=== PATIENT | female | born 1995 | race Caucasian/White ===

== ENCOUNTER → 2017-10-09 12:19 | Outpatient (CLI) | payer OTHER, SELFPAY ==
[2017-10-09 13:20] LABS: Thyroid Stim Hormone (TSH) 2.06 uIU/mL (0.358-3.74)
== END ==
PROVIDERS: Family Provider Nurse Practitioner; PCP Nurse Practitioner; Visit Provider Nurse Practitioner
DX: E03.9 Hypothyroidism, unspecified (principal)
CPT/HCPCS: 36415; 84443

== ENCOUNTER → 2018-01-22 13:33 | Outpatient (CLI) | payer OTHER, SELFPAY ==
[2018-01-24 13:28] LABS: HPV Reflexed? NOT INDICATED
== END ==
PROVIDERS: Visit Provider Obstetrics & Gynecology
DX: Z12.4 Encounter for screening for malignant neoplasm of cervix (principal)
CPT/HCPCS: 88175; G0145

== ENCOUNTER → 2018-05-16 10:04 | Outpatient (CLI) | payer OTHER, SELFPAY ==
[2018-05-16 12:25] LABS: hCG Titer Quant., Serum < 1 mIU/mL (<9 non-preg)
[2018-05-16 12:29] LABS: Follicle Stimulating Hormone 5.7 mIU/mL; Prolactin 8.2 ng/mL; T4 Free Direct 0.71 ng/dL (0.76-1.46); Thyroid Stim Hormone (TSH) 2.97 uIU/mL (0.358-3.74)
== END ==
PROVIDERS: Referring Provider Obstetrics & Gynecology; Visit Provider Obstetrics & Gynecology
DX: N91.2 Amenorrhea, unspecified (principal)
CPT/HCPCS: 36415; 83001; 83002; 84146; 84439; 84443; 84702

== ENCOUNTER → 2018-08-29 | Outpatient (CLI) | payer OTHER, SELFPAY ==
[2018-08-29 15:24] VITALS: BMI 42.7
[2018-08-29 22:22] LABS: Thyroid Stim Hormone (TSH) 2.42 uIU/mL (0.358-3.74)
== END | disposition home or self-care (01) ==
PROVIDERS: Visit Provider Nurse Practitioner
DX: E03.9 Hypothyroidism, unspecified (principal)
CPT/HCPCS: 84443

== ENCOUNTER → 2019-05-29 11:39 | Outpatient (CLI) | payer OTHER, SELFPAY ==
[2019-05-22 17:53] VITALS: BMI 42.7
[2019-05-29 12:52] LABS: ALB/GLOB Ratio 0.7 RATIO (0.9-2.4); AST(SGOT) 56 U/L (15-37); Alanine Aminotransfer ALT/SGPT 38 U/L (13-56); Albumin, Serum 3.2 g/dL (3.2-5.0); Alkaline Phosphatase 50 U/L (45-117); Anion Gap 7 (5-15); BUN 9 mg/dL (7-18); BUN/Creat Ratio 11.4 RATIO (10-20); Calcium,Total 9.7 mg/dL (8.5-10.1); Chloride 105 mmol/L (98-107); Cholesterol 155 mg/dL (200); Creatinine, Serum 0.79 mg/dL (0.55-1.02); EST Glomerular Filtration Rate 94 mL/min (>60); Est Glom Filt Rate - Afr Amer 114 mL/min (>60); Ferritin 87 ng/mL (8-252); Globulin 4.4 g/dL (2.2-4.2); Glucose 140 mg/dL (74-106); High Density Lipoprotein 47 mg/dL; Potassium 3.7 mmol/L (3.5-5.1); Protein, Total 7.6 g/dL (6.4-8.2); Sodium Level 137 mmol/L (136-145); Triglycerides 359 mg/dL; Very Low Density Lipoprotein 72 mg/dL (5-40)
[2019-05-29 14:38] LABS: Thyroid Stim Hormone (TSH) 3.95 uIU/mL (0.358-3.74)
[2019-05-30 12:01] LABS: Thyroid Peroxidase AB 8 IU/mL (0-34)
== END ==
PROVIDERS: PCP Nurse Practitioner; Referring Provider Internal Medicine Endocrinology, Diabetes & Metabolism; Visit Provider Internal Medicine Endocrinology, Diabetes & Metabolism
DX: E03.9 Hypothyroidism, unspecified (principal); E28.2 Polycystic ovarian syndrome
CPT/HCPCS: 36415; 80053; 80061; 82728; 84443; 86376

== ENCOUNTER → 2020-02-27 17:34 | Outpatient (CLI) | payer OTHER, SELFPAY ==
[2020-02-11 17:32] VITALS: BMI 42.4
== END ==
PROVIDERS: PCP Nurse Practitioner; Referring Provider Nurse Practitioner; Visit Provider Nurse Practitioner
DX: Z20.828 Contact with and (suspected) exposure to other viral communicable diseases (principal)
CPT/HCPCS: 87635; C9803; U0003

== ENCOUNTER → 2020-04-29 22:05 | Outpatient (CLI) | payer OTHER, SELFPAY ==
[2020-02-11 17:32] VITALS: BMI 42.4
[2020-04-29 22:35] LABS: Thyroid Stim Hormone (TSH) 2.04 uIU/mL (0.358-3.74)
== END ==
PROVIDERS: PCP Nurse Practitioner; Referring Provider Nurse Practitioner; Visit Provider Nurse Practitioner
DX: E03.9 Hypothyroidism, unspecified (principal)
CPT/HCPCS: 84439; 84443

== ENCOUNTER 2021-05-31 22:36 | Outpatient (CLI) | payer OTHER, SELFPAY ==
[2021-05-31 23:33] LABS: Thyroid Stim Hormone (TSH) 3.24 uIU/mL (0.358-3.74)
== END 2021-05-31 23:59 | disposition home or self-care (01) ==
PROVIDERS: PCP Nurse Practitioner; Referring Provider Nurse Practitioner; Visit Provider Nurse Practitioner
DX: E03.9 Hypothyroidism, unspecified (principal)
CPT/HCPCS: 84443

== ENCOUNTER → 2021-08-18 | Outpatient (CLI) | payer OTHER, SELFPAY ==
[2021-08-24 14:21] LABS: HPV Reflexed? NOT INDICATED
== END | disposition home or self-care (01) ==
LOC: LABSPEC 13:52
PROVIDERS: PCP Nurse Practitioner; Visit Provider Obstetrics & Gynecology
DX: Z12.4 Encounter for screening for malignant neoplasm of cervix (principal)
CPT/HCPCS: 88175; G0145

== ENCOUNTER → 2021-12-26 | Outpatient (CLI) | payer OTHER, SELFPAY ==
[2021-12-26 18:34] LABS: Estradiol 50.2 pg/mL; Follicle Stimulating Hormone 6.4 mIU/mL; Thyroid Stim Hormone (TSH) 3.55 uIU/mL (0.358-3.74)
[2022-01-08 17:07] LABS: Testosterone, Free 1.68 ng/dL (0.10-0.85); Testosterone, Total 52 ng/dL (13-71)
[2022-01-09 13:40] LABS: Testosterone, % Free 3.23 % (0.50-2.80)
== END | disposition home or self-care (01) ==
LOC: LAB 13:48
PROVIDERS: PCP Nurse Practitioner; Referring Provider Registered Nurse; Visit Provider Registered Nurse
DX: E28.2 Polycystic ovarian syndrome (principal)
CPT/HCPCS: 36415; 82670; 83001; 84402; 84403; 84443

== ENCOUNTER → 2023-09-06 | Outpatient (CLI) | payer SELFPAY | END | disposition home or self-care (01) | PROVIDERS: PCP Nurse Practitioner; Visit Provider Nurse Practitioner | DX: R30.0 Dysuria (principal) | CPT/HCPCS: 87086 ==

== ENCOUNTER → 2023-10-23 | Outpatient (CLI) | payer OTHER, SELFPAY ==
[2023-10-23 21:26] LABS: Absolute Neutrophil Count 4.4 X10^3/uL (2.0-7.7); Basophil# 0.07 X10^3/uL; Basophil% 0.8 % (0-1); Eosinophil# 0.15 X10^3/uL; Eosinophils% 1.8 % (0-5); Hematocrit 46.9 % (37-47); Hemoglobin 15.1 g/dL (12.0-15.0); Lymphocyte % 39.3 % (19-41); Mean Corp Hgb Conc 32.2 g/dL (32-36); Mean Corpuscular Hgb 28.5 pg (27.0-32.0); Mean Corpuscular Volume 88.5 fL (81-99); Mean Platelet Vol. 10.1 fl (6.2-12.0); Monocyte# 0.47 X10^3/uL; Monocyte% 5.6 % (0-10); NRBC Flagged by Analyzer 0 % (0-5); Neutrophil % 52.4 % (47-70); Platelet Count 306 K/mm3 (150-450); RBC Distribution Width CV 13.7 % (11.6-14.6); RBC Distribution Width SD 44.2 fl (35.1-43.9); White Blood Count 8.4 K/mm3 (4.4-11.0)
[2023-10-23 21:56] LABS: ALB/GLOB Ratio 0.8 RATIO (0.9-2.4); AST(SGOT) 33 U/L (15-37); Alanine Aminotransfer ALT/SGPT 59 U/L (13-56); Albumin, Serum 3.8 g/dL (3.2-5.0); Alkaline Phosphatase 61 U/L (45-117); Anion Gap 9 (5-15); BUN 14 mg/dL (7-18); BUN/Creat Ratio 19.1 RATIO (10-20); Calcium,Total 9.9 mg/dL (8.5-10.1); Chloride 104 mmol/L (98-107); Cholesterol 225 mg/dL (200); Creatinine, Serum 0.73 mg/dL (0.55-1.02); EST Glomerular Filtration Rate 99 mL/min (>60); Est Glom Filt Rate - Afr Amer 120 mL/min (>60); Globulin 4.7 g/dL (2.2-4.2); Glucose 149 mg/dL (74-106); High Density Lipoprotein 38 mg/dL; Potassium 3.9 mmol/L (3.5-5.1); Protein, Total 8.5 g/dL (6.4-8.2); Sodium Level 138 mmol/L (136-145); Thyroid Stim Hormone (TSH) 3.81 uIU/mL (0.358-3.74); Triglycerides 392 mg/dL; Very Low Density Lipoprotein 78 mg/dL (5-40)
[2023-10-26 13:08] LABS: Vitamin D 1,25-Dihydroxy 54.3 pg/mL (24.8-81.5)
== END | disposition home or self-care (01) ==
PROVIDERS: PCP Nurse Practitioner; Referring Provider Nurse Practitioner; Visit Provider Nurse Practitioner
DX: E11.9 Type 2 diabetes mellitus without complications (principal); E55.9 Vitamin D deficiency, unspecified; E03.9 Hypothyroidism, unspecified
CPT/HCPCS: 80053; 80061; 82652; 84443; 85025

== ENCOUNTER → 2023-12-17 | Outpatient (CLI) | payer OTHER, SELFPAY | END | disposition home or self-care (01) | PROVIDERS: PCP Nurse Practitioner; Referring Provider Advanced Practice Midwife; Visit Provider Advanced Practice Midwife | DX: N89.8 Other specified noninflammatory disorders of vagina (principal) | CPT/HCPCS: 87070; 87205 ==

== ENCOUNTER → 2024-01-09 | Outpatient (CLI) | payer OTHER, SELFPAY | END | disposition home or self-care (01) | PROVIDERS: PCP Nurse Practitioner; Referring Provider Advanced Practice Midwife; Visit Provider Advanced Practice Midwife | DX: R30.0 Dysuria (principal) | CPT/HCPCS: 87070; 87086; 87088; 87205 ==

== ENCOUNTER → 2024-02-27 | Outpatient (CLI) | payer OTHER, SELFPAY ==
[2024-02-27 12:25] LABS: Absolute Lymphocyte Count 3.09 X10^3/uL (0.83-4.51); Absolute Neutrophil Count 5.6 X10^3/uL (2.0-7.7); Basophil# 0.08 X10^3/uL; Basophil% 0.9 % (0-1); Eosinophil# 0.12 X10^3/uL; Eosinophils% 1.3 % (0-5); Hematocrit 41.6 % (37-47); Hemoglobin 13.8 g/dL (12.0-15.0); Lymphocyte # 3.09 X10^3/ul (0.83-4.51); Mean Corp Hgb Conc 33.2 g/dL (32-36); Mean Corpuscular Hgb 29.1 pg (27.0-32.0); Mean Corpuscular Volume 87.6 fL (81-99); Mean Platelet Vol. 9.5 fl (6.2-12.0); Monocyte# 0.45 X10^3/uL; Monocyte% 4.8 % (0-10); NRBC Flagged by Analyzer 0 % (0-5); Neutrophil # 5.55 X10^3/uL (2.7-7.7); Neutrophil % 59.1 % (47-70); Platelet Count 291 K/mm3 (150-450); Red Blood Count 4.75 M/mm3 (4.2-5.4); White Blood Count 9.4 K/mm3 (4.4-11.0)
[2024-02-27 12:39] LABS: Estradiol 30.3 pg/mL; Follicle Stimulating Hormone 7.5 mIU/mL; T4 Free Direct 0.89 ng/dL (0.76-1.46)
[2024-03-01 21:06] LABS: PROLACTIN 7.6 ng/mL (4.8-33.4); Testosterone Free 3.9 pg/mL (0.0-4.2)
[2024-03-05 03:07] LABS: 17-Hydroxyprogesterone 39 ng/dL (.)
== END | disposition home or self-care (01) ==
LOC: BWCLAB 10:13
PROVIDERS: PCP Nurse Practitioner; Referring Provider Obstetrics & Gynecology; Visit Provider Obstetrics & Gynecology
DX: E28.2 Polycystic ovarian syndrome (principal); N93.9 Abnormal uterine and vaginal bleeding, unspecified
CPT/HCPCS: 36415; 82627; 82670; 83001; 83498; 84146; 84402; 84403; 84439; 85025; 82626

== ENCOUNTER → 2024-05-01 | Outpatient (CLI) | payer SELFPAY | END | disposition home or self-care (01) | LOC: LABSPEC 14:17 | PROVIDERS: PCP Nurse Practitioner; Referring Provider Nurse Practitioner Family; Visit Provider Nurse Practitioner Family | DX: R30.0 Dysuria (principal) | CPT/HCPCS: 87086 ==

== ENCOUNTER → 2024-05-08 | Outpatient (CLI) | payer OTHER, SELFPAY ==
--- NOTE | 2024-05-08 08:42 | EKG12_ITS ---
Test Reason : PRE MEDICATION Blood Pressure : */* mmHG Vent. Rate : 89 BPM Atrial Rate : 89 BPM P-R Int : 132 ms QRS Dur : 70 ms QT Int : 348 ms P-R-T Axes : 63 37 55 degrees QTcB Int : 423 ms Normal sinus rhythm Normal ECG Confirmed by ALEX CARRERA, MONICA ([id number]), metropolitan editor KATHI LAMA ([id number]) on 05/08/2024 1:13:50 PM Referred By: Tete Davis Confirmed By: MONICA JOHNSON MD
[2024-05-08 09:57] LABS: Absolute Lymphocyte Count 2.75 X10^3/uL (0.83-4.51); Absolute Neutrophil Count 5.3 X10^3/uL (2.0-7.7); Basophil# 0.08 X10^3/uL; Basophil% 0.9 % (0-1); Eosinophil# 0.16 X10^3/uL; Eosinophils% 1.8 % (0-5); Hematocrit 42.7 % (37-47); Hemoglobin 14.1 g/dL (12.0-15.0); Lymphocyte # 2.75 X10^3/ul (0.83-4.51); Lymphocyte % 30.9 % (19-41); Mean Corpuscular Volume 87.9 fL (81-99); Mean Platelet Vol. 9.7 fl (6.2-12.0); Monocyte# 0.55 X10^3/uL; Monocyte% 6.2 % (0-10); NRBC Flagged by Analyzer 0 % (0-5); Neutrophil # 5.34 X10^3/uL (2.7-7.7); Neutrophil % 59.9 % (47-70); Platelet Count 279 K/mm3 (150-450); RBC Distribution Width CV 13.2 % (11.6-14.6); RBC Distribution Width SD 42.2 fl (35.1-43.9); Red Blood Count 4.86 M/mm3 (4.2-5.4); White Blood Count 8.9 K/mm3 (4.4-11.0)
[2024-05-08 10:55] LABS: ALB/GLOB Ratio 0.8 RATIO (0.9-2.4); AST(SGOT) 27 U/L (15-37); Alanine Aminotransfer ALT/SGPT 41 U/L (13-56); Albumin, Serum 3.7 g/dL (3.2-5.0); Alkaline Phosphatase 55 U/L (45-117); Anion Gap 7 (5-15); BUN 14 mg/dL (7-18); BUN/Creat Ratio 20.3 RATIO (10-20); Calcium,Total 9.3 mg/dL (8.5-10.1); Chloride 106 mmol/L (98-107); Cholesterol 186 mg/dL (200); Creatinine, Serum 0.69 mg/dL (0.55-1.02); EST Glomerular Filtration Rate 106 mL/min (>60); Est Glom Filt Rate - Afr Amer 129 mL/min (>60); Globulin 4.4 g/dL (2.2-4.2); Glucose 132 mg/dL (74-106); High Density Lipoprotein 47 mg/dL; Potassium 3.6 mmol/L (3.5-5.1); Protein, Total 8.1 g/dL (6.4-8.2); Sodium Level 139 mmol/L (136-145); Triglycerides 151 mg/dL; Very Low Density Lipoprotein 30 mg/dL (5-40)
[2024-05-08 12:21] LABS: Hemoglobin A1c 7.3 % (3.8-5.6)
[2024-05-10 20:07] LABS: Vitamin D 1,25-Dihydroxy 25.7 pg/mL (24.8-81.5)
== END | disposition home or self-care (01) ==
PROVIDERS: PCP Nurse Practitioner; Referring Provider Nurse Practitioner Family; Visit Provider Nurse Practitioner Family
DX: I10 Essential (primary) hypertension (principal); E11.65 Type 2 diabetes mellitus with hyperglycemia; E66.09 Other obesity due to excess calories; Z13.21 Encounter for screening for nutritional disorder; Z13.220 Encounter for screening for lipoid disorders
CPT/HCPCS: 36415; 80053; 80061; 82652; 83036; 85025; 93005

== ENCOUNTER → 2025-01-01 | Outpatient (CLI) | payer BC, SELFPAY ==
--- OUTSIDE RECORDS SUMMARY | 2025-01-01 22:24 | XMS RPT_ITS | CCD ---
Author Organization [facility] Care Team Providers Care Mortgage Accounting Clerk Name Role Phone Chinchilla OVERHEAD GARAGE DOOR HANGER, OVERHEAD GARAGE DOOR HANGER-C Lelo Primary Care Provider Chinchilla OVERHEAD GARAGE DOOR HANGER, OVERHEAD GARAGE DOOR HANGER-C Lelo Referring Provider [phone] MONIKA Carter Attending Provider Tete Davis Attending Unavailable Chinchilla OVERHEAD GARAGE DOOR HANGER, Lelo Primary Care Unavailable Chinchilla OVERHEAD GARAGE DOOR HANGER, Lelo Referring Unavailable Chinchilla OVERHEAD GARAGE DOOR HANGER, Lelo Primary Care Unavailable Chinchilla OVERHEAD GARAGE DOOR HANGER, Lelo Attending Unavailable Andres Fletcher Attending Unavailable Chinchilla OVERHEAD GARAGE DOOR HANGER, Lelo Referring Unavailable Chinchilla OVERHEAD GARAGE DOOR HANGER, Lelo Primary Care Unavailable Natasha Juarez Attending Unavailable Chinchilla OVERHEAD GARAGE DOOR HANGER, Lelo Referring Unavailable Chinchilla OVERHEAD GARAGE DOOR HANGER, Lelo Primary Care Unavailable Tete Davis Attending Unavailable Chinchilla OVERHEAD GARAGE DOOR HANGER, Lelo Referring Unavailable Chinchilla OVERHEAD GARAGE DOOR HANGER, Lelo Primary Care Unavailable Natasha Juarez Attending Unavailable Chinchilla OVERHEAD GARAGE DOOR HANGER, Lelo Referring Unavailable Chinchilla OVERHEAD GARAGE DOOR HANGER, Lelo Primary Care Unavailable Celia Chopra Attending Unavailable Chinchilla OVERHEAD GARAGE DOOR HANGER, Lelo Referring Unavailable Chinchilla OVERHEAD GARAGE DOOR HANGER, Lelo Primary Care Unavailable Natasha Juarez Attending Unavailable Chinchilla OVERHEAD GARAGE DOOR HANGER, Lelo Referring Unavailable Chinchilla OVERHEAD GARAGE DOOR HANGER, Lelo Primary Care Unavailable Chinchilla OVERHEAD GARAGE DOOR HANGER, Lelo Primary Care Unavailable Jenni Webb Attending Unavailabl Tete Simon Referring Unavailable Chinchilla OVERHEAD GARAGE DOOR HANGER, Lelo Referring Unavailable Chinchilla OVERHEAD GARAGE DOOR HANGER, Lelo Primary Care Unavailable Celia Chopra Attending Unavailable Chinchilla OVERHEAD GARAGE DOOR HANGER, Lelo Referring Unavailable Chinchilla OVERHEAD GARAGE DOOR HANGER, Lelo Primary Care Unavailable Tete Davis Attending Unavailable Chinchilla OVERHEAD GARAGE DOOR HANGER, Lelo Primary Care Unavailable Tete Davis Referring Unavailable Tete Davis Attending Unavailable Tete Davis Attending Unavailable Tete Davis Referring Unavailable Chinchilla OVERHEAD GARAGE DOOR HANGER, Lelo Primary Care Unavailable Natasha Juarez Referring Unavailable Natasha Juarez Attending Unavailable Chinchilla OVERHEAD GARAGE DOOR HANGER, Lelo Primary Care Unavailable Natasha Juarez Attending Unavailable Natasha Juarez Referring Unavailable Amor OVERHEAD GARAGE DOOR HANGER, Lelo Primary Care Unavailable Celia Chopra Attending Unavailable Celia Chopra Referring Unavailable Amor OVERHEAD GARAGE DOOR HANGER, Lelo Primary Care Unavailable Amor OVERHEAD GARAGE DOOR HANGER, Lelo Referring Unavailable Amor OVERHEAD GARAGE DOOR HANGER, Lelo Primary Care Unavailable Amor OVERHEAD GARAGE DOOR HANGER, Lelo Attending Unavailable Allergies Allergy Classification Reported Allergen(s) Allergy Type Date of Onset Reaction(s) Facility (2 sources) levoFLOXacin Drug Allergy 11-23-19 19 Other [facility] Work Phone: (1 source) Seasonal allergy Allergy to substance 11-23-19 19 [facility] Work Phone: (1 source) Seasonal Allergies: Uncoded Allergy to substance 12-27-19 NEEDS FOLLOW-UP [facility] Work Phone: (1 source) empagliflozin Drug Allergy 06-27-19 [facility] Repository (1 source) levoFLOXacin Drug Allergy 06-27-19 [facility] Repository (1 source) metFORMIN Drug Allergy 12-17-19 [facility] Repository (1 source) Nitrofurantoin Drug Allergy 06-27-19 [facility] Repository (1 source) Environmental Allergies: Uncoded; Translations: [Environmental Allergies: Uncoded] Propensity to adverse reactions (disorder) 06-27-19 [facility] Repository (1 source) thyroid, pork Drug allergy (disorder) 06-27-19 [facility] Repository Medications Current Medications Medication Drug Class(es) Dates Sig (Normalized) Sig (Original) [id number] 200 actuat albuterol 0.09 mg/actuat metered dose inhaler (6 sources) beta2-Adrenergic Agonist Start: 03-16-2021 take 1 puff(s) by inhalation every four hours Albuterol Sulfate (Proair Hfa) 90 mcg/actuation HFA aerosol inhaler Active 2 PUFF INHALATION Q4H .March 16, 2021 5:33pm Start: 02-11-2020 End: 03-16-2021 take 1 puff(s) by inhalation every four hours Albuterol Sulfate (Proair Hfa) 90 mcg/actuation HFA aerosol inhaler Active 2 PUFF INHALATION Q4H .5 March 16, 2021 5:33pm Start: 10-25-2015 End: 05-14-2018 take 1 puff(s) by inhalation every four hours as needed Albuterol Sulfate Discontinued 1 - 2 PUFF INHALATION EVERY 4 HOURS NEEDED October 25, 2015 12:31pm May 14, 2018 5:12pm cefdinir 300 mg oral capsule (6 sources) Cephalosporin Antibacterial Start: 05-31-2021 End: 12-26-2021 take 600 mg by mouth once daily Cefdinir Active 600 MG PO DAILY May 31, 2021 9:09pm Start: 05-23-2019 End: 04-29-2020 take 300 mg by mouth twice daily Cefdinir Discontinued 300 MG PO TWICE A DAY February 11, 2020 6:35pm April 29, 2020 6:30pm famotidine 20 mg oral tablet (2 sources) Histamine-2 Receptor Antagonist Start: 05-22-2019 End: 12-26-2021 take 1 tablet by mouth once daily Famotidine (Pepcid) 20 mg tablet Active 20 MG PO DAILY May 22, 2019 6:56pm ibuprofen 800 mg oral tablet (6 sources) Nonsteroidal Anti-inflammatory Drug Start: 05-22-2019 End: 02-11-2020 take 800 mg by mouth every eight hours Ibuprofen Active 800 MG PO Q8H 60 February 11, 2020 6:36pm Start: 03-14-2019 End: 05-22-2019 take 1 tablet by mouth every six hours Ibuprofen (Ibu) 400 mg tablet Discontinued 400 MG PO EVERY 6 HOURS March 14, 2019 2:21pm May 22, 2019 6:57pm levocetirizine dihydrochloride 5 mg oral tablet (2 sources) Histamine-1 Receptor Antagonist Start: 02-11-2020 take 1 tablet by mouth once daily Levocetirizine (Xyzal) 5 mg tablet Active 5 MG PO DAILY February 11, 2020 6:33pm magnesium hydroxide 400 mg chewable tablet (2 sources) Start: 04-04-2019 Magnesium Hydroxide Active MG PO April 04, 2019 10:58am multivitamin,tx-iron- minerals tablet (2 sources) Start: 01-02-2018 take 1 tablet by mouth once daily multivitamin,tx-iro n-minerals tablet Active 1 TABLET PO DAILY January 02, 2018 3:52pm Start: 01-02-2018 take 1 tablet by argenis th once daily multivitamin,nh-mdbm-vaywshnb tablet Act sheila 1 TABLET PO DAILY January 02, 2018 12:00am Completed/Discontinued Medications Medication Drug Class(es) Dates Sig (Normalized) Sig (Original) acetaminophen 300 mg / butalbital 50 mg / caffeine 40 mg oral capsule (2 sources) Barbiturate, Central Nervous System Stimulant, Methylxanthine Start: 01-02-2018 End: 02-11-2020 take 1 capsule by mouth every six hours Butalbital-Acetam inophen-Caff (Fioricet) 50-300-40 mg capsule Discontinued 1 CAP PO EVERY 6 HOURS January 02, 2018 3:50pm February 11, 2020 6:33pm amoxicillin 875 mg / clavulanate 125 mg oral tablet (16 sources) Penicillin-class Antibacterial Start: 01-19-2021 End: 05-31-2021 take 1 tablet by mouth twice daily Amoxicillin-Pot Clavulanate Discontinued 1 TABLET PO TWICE A DAY March 16, 2021 5:33pm May 31, 2021 9:06pm Start: 07-07-2020 End: 07-21-2020 take 1 tablet by mouth twice daily Amoxicillin-Pot Clavulanate Discontinued 1 TABLET PO TWICE A DAY July 07, 2020 6:10pm July 21, 2020 12:03am Start: 06-13-2019 End: 06-27-2019 take 1 tablet by mouth twice daily Amoxicillin-Pot Clavulanate Discontinued 1 TABLET PO TWICE A DAY June 13, 2019 10:51pm June 27, 2019 12:08am Start: 01-02-2018 End: 05-23-2019 take 1 tablet by mouth twice daily Amoxicillin-Pot Clavulanate Discontinued 1 TABLET PO TWICE A DAY May 22, 2019 6:56pm May 23, 2019 6:35pm calcium carbonate 500 mg chewable tablet (2 sources) Start: 10-25-2015 End: 05-14-2018 take 1000 mg by mouth every four hours as needed Calcium Carbonate Discontinued 1000 MG PO EVERY 4 HOURS NEEDED October 25, 2015 12:31pm May 14, 2018 5:12pm cetirizine hydrochloride 10 mg oral capsule (2 sources) Histamine-1 Receptor Antagonist Start: 03-14-2019 End: 02-11-2020 take 1 capsule by mouth once daily Cetirizine (Zyrtec) 10 mg capsule Discontinued 10 MG PO DAILY March 14, 2019 2:20pm February 11, 2020 6:34pm docusate sodium 100 mg oral capsule (2 sources) Start: 10-28-2015 End: 05-14-2018 Docusate Sodium Discontinued 100 MG PO TWICE A DAY 60 October 28, 2015 8:00am May 14, 2018 5:12pm take one tab twice daily for first two weeks to keep BM soft. After two weeks, may use prn. empagliflozin 25 mg oral tablet (2 sources) Sodium-Glucose Cotransporter 2 Inhibitor Start: 04-29-2020 End: 05-31-2021 take 1 tablet by mouth once daily Empagliflozin (Jardiance) 25 mg tablet Discontinued 25 MG PO DAILY April 29, 2020 6:40pm May 31, 2021 9:06pm 168 hr ethinyl estradiol 0.11995 mg/hr / norelgestromin 0.36542 mg/hr transdermal system (2 sources) Progestin, Estrogen Start: 08-29-2018 End: 05-31-2021 Norelgestromin-Eth in.Estradiol (Xulane) 150-35 mcg/24 hr patch weekly Discontinued 1 PATCH TD EVERY WEEK August 29, 2018 3:27pm May 31, 2021 9:07pm Norgestimate-Ethinyl Estradiol (4 sources) Progestin, Estrogen Start: 05-14-2018 End: 05-14-2018 take 1 tablet by mouth once daily Norgestimate-Ethin yl Estradiol (Tri-Sprintec (28)) 0.18/0.215/0.25 mg-35 mcg (28) tablet Discontinued 1 TABLET PO DAILY May 14, 2018 5:14pm May 14, 2018 6:36pm Start: 05-14-2018 End: 05-14-2018 take 1 tablet by mouth once daily Norgestimate-Ethinyl Estradiol (Tri-Sprintec (28)) 0.18/0.215/0.25 mg-35 mcg (28) tablet Discontinued 1 TABLET PO DAILY May 14, 2018 1:00am May 14, 2018 6:36pm Start: 01-02-2018 End: 01-02-2018 take 1 tablet by mouth once daily Norgestimate-Ethinyl Estradiol (Zjr-Me-Ohmhuxuw) 0.18/0.215/0.25 mg-25 mcg tablet Discontinued 1 TABLET PO DAILY January 02, 2018 3:48pm January 02, 2018 5:56pm Start: 01-02-2018 End: 01-02-2018 take 1 tablet by mouth once daily Norgestimate-Ethinyl Estradiol (Kwc-Qs-Rtrujfvw) 0.18/0.215/0.25 mg-25 mcg tablet Discontinued 1 TABLET PO DAILY January 02, 2018 12:00am January 02, 2018 5:56pm fluconazole 150 mg oral tablet (6 sources) Azole Antifungal Start: 01-02-2018 End: 04-29-2020 Fluconazole Discontinued 150 MG PO Q3D 2 0 February 11, 2020 1:00am April 29, 2020 6:32pm may repeat second dose 72 hrs after first dose if symptoms persist levothyroxine sodium 0.137 mg oral tablet (6 sources) l-Thyroxine Start: 06-13-2019 End: 12-26-2021 take 137 ug by mouth once daily Levothyroxine Discontinued 137 MCG PO DAILY March 11, 2020 10:15am April 30, 2020 12:09pm loratadine 10 mg oral tablet (2 sources) Start: 10-25-2015 End: 05-14-2018 take 10 mg by mouth once daily Loratadine Discontinued 10 MG PO DAILY October 25, 2015 12:31pm May 14, 2018 5:11pm oxyCODONE hydrochloride 5 mg oral tablet (2 sources) Opioid Agonist Start: 10-28-2015 End: 05-14-2018 take 5-10 mg by mouth every four hours as needed Oxycodone Discontinued 5 - 10 MG PO EVERY 4 HOURS NEEDED October 28, 2015 8:01am May 14, 2018 5:10pm Pnv Cmb#95-Ferrous Fumarate-Fa (2 sources) Start: 06-22-2015 End: 05-14-2018 Pnv Cmb#95-Ferrous Fumarate-Fa Discontinued 1 EACH PO DAILY June 22, 2015 1:50pm May 14, 2018 5:10pm Start: 06-22-2015 End: 05-14-2018 Pnv Cmb#95-Ferrous Fumarate- Fa Discontinued 1 EACH PO DAILY June 22, 2015 12:00am May 14, 2018 5:10pm predniSONE 20 mg oral tablet (2 sources) Start: 02-26-2020 End: 03-04-2020 take 40 mg by mouth once daily Prednisone Discontinued 40 MG PO DAILY 14 February 26, 2020 8:40pm March 04, 2020 1:03am raNITIdine 150 mg oral capsule (2 sources) Histamine-2 Receptor Antagonist Start: 03-14-2019 End: 05-22-2019 take 150 mg by mouth once daily Ranitidine Hcl Discontinued 150 MG PO DAILY March 14, 2019 2:21pm May 22, 2019 6:56pm sulfamethoxazole 800 mg / trimethoprim 160 mg oral tablet (2 sources) Dihydrofolate Reductase Inhibitor Antibacterial, Sulfonamide Antimicrobial Start: 05-27-2018 End: 06-06-2018 take 1 tablet by mouth twice daily Sulfamethoxazole- Trimethoprim Discontinued 1 TABLET PO TWICE A DAY 20 May 27, 2018 10:07pm June 06, 2018 1:07am thyroid (long term) 15 mg oral tablet (8 sources) Start: 01-02-2018 End: 06-13-2019 take 1 tablet by mouth once daily Thyroid (Pork) ([place] Thyroid) 15 mg tablet Discontinued 15 MG PO DAILY November 04, 2018 11:33am June 13, 2019 6:05pm vitamin b12 1 mg/ml injectable solution (6 sources) Vitamin B12 Start: 01-02-2018 End: 02-11-2020 inject 1000 ug by intramuscular injection every week Cyanocobalamin (Vitamin B-12) Discontinued 1000 MCG IM EVERY WEEK 4.286 August 29, 2018 12:00am September 23, 2019 12:02am Problems Active Problems Problem Classification Problem Date Documented Da te Episodic/Chronic Chronic obstructive pulmonary disease and bronchiectasis (2 sources) Bronchitis; Translations: [Bronchitis, not specified as acute or chronic] Episodic Contraceptive and procreative management (3 sources) Patient encounter status; Translations: [Encounter for other general counseling and advice on procreation] Onset: 05-01-2024 Episodic Diabetes mellitus with complications (1 source) Type 2 diabetes mellitus with hyperglycemia; Translations: [Type 2 diabetes mellitus with hyperglycemia] Onset: 05-01-2024 Chronic Diabetes mellitus without complication (1 source) Type 2 diabetes mellitus without complications; Translations: [Type 2 diabetes mellitus without complications] Onset: 01-03-2024 Chronic Essential hypertension (1 source) Essential (primary) hypertension; Translations: [Essential (primary) hypertension] Onset: 05-27-2024 Chronic Genitourinary symptoms and ill-defined conditions (4 sources) Increased frequency of urination; Translations: [Frequency of micturition] Onset: 01-09-2024 Episodic Immunizations and screening for infectious disease (2 sources) Contact with or exposure to other viral diseases; Translations: [Exposure to COVID-19 virus] Episodic Mycoses (2 sources) Anogenital candidiasis; Translations: [Candidiasis of vulva and vagina] Episodic Nutritional deficiencies (2 sources) Cobalamin deficiency; Translations: [Deficiency of other specified B group vitamins] Episodic Other connective tissue disease (2 sources) Pain in toe; Translations: [Pain in left toe(s)] Episodic Other endocrine disorders (1 source) Polycystic ovary syndrome; Translations: [Polycystic ovarian syndrome] Chronic Other endocrine disorders (2 sources) Polycystic ovarian syndrome; Translations: [Polycystic ovaries] Onset: 05-01-2024 Chronic Other nutritional; endocrine; and metabolic disorders (2 sources) Insulin resistance; Translations: [Metabolic syndrome] Chronic Other nutritional; endocrine; and metabolic disorders (2 sources) Metabolic syndrome; Translations: [Dysmetabolic syndrome X] Onset: 05-01-2024 Chronic Other nutritional; endocrine; and metabolic disorders (1 source) Other obesity due to excess calories; Translations: [Other obesity due to excess calories] Onset: 05-01-2024 Chronic Other screening for suspected conditions (not mental disorders or infectious disease) (2 sources) Encounter for screening for lipoid disorders; Translations: [Encounter for screening for nutritional disorder] Onset: 05-01-2024 Episodic Other upper respiratory infections (2 sources) Maxillary sinusitis; Translations: [Chronic maxillary sinusitis] Chronic Other upper respiratory infections (2 sources) Posterior rhinorrhea; Translations: [Postnasal drip] Episodic Otitis media and related conditions (2 sources) Otitis media; Translations: [Otitis media, unspecified, left ear] Episodic Superficial injury; contusion (2 sources) Blister of foot; Translations: [Blister (nonthermal), left lesser toe(s), initial encounter] Episodic Thyroid disorders (4 sources) Acquired hypothyroidism; Translations: [Hypothyroidism, unspecified] Onset: 05-01-2024 Chronic Urinary tract infections (2 sources) Cystitis; Translations: [Cystitis, unspecified without hematuria] Episodic Past or Other Problems Problem Classification Problem Date Documented Date Episodic/Chronic Other female genital disorders (1 source) Other specified noninflammatory disorders of vagina; Translations: [Other specified noninflammatory disorders of vagina] Onset: 01-07-2024 Episodic Unclassified (2 sources) ALLERGIC REACTION TO PERTUSSIS Unclassified (1 source) MONO 10 YEARS Unclassified (1 source) mono at 10 yrs Results Test Name Value Interpretation Reference Range Facility Kitchen Hand Office Visit Reporton 06-26-2024 Kitchen Hand Office Visit Report [facility] [address], [address] [place] [address] OFFICE VISIT Date of Service: 06/26/24 MR#: [id number] Acct: [id number] Name: RAYNA WESTON Rep #: [id number] : 1995 Provider: HANY Jay Age/Sex: 29/F Location: [facility] [place] Status: Signed Intake Vital Signs 05/23/24 11:07 06/26/24 11:30 06/26/24 11:31 Height 5 ft 6 in 5 ft 6 in 5 ft 6 in Weight: 245 lb 236 lb BMI 39.5 38.0 BP 157/100 H 144/87 H 129/86 H Pulse 83 82 Intake Visit Reasons: 1 M CK Refrigeration Systems Installer Required: No Is patient in pain?: No Allergies Environmental Allergies: Uncoded Allergy (Intermediate, Verified 06/26/24 11:26) NEEDS FOLLOW-UP empagliflozin (From Jardiance) Adverse Reaction (Severe, Verified 06/26/24 11:26) uti and yeast infections thyroid, pork (From [place] Thyroid) Adverse Reaction (Severe, Verified 06/26/24 11:26) tachycardia and SOB nitrofurantoin (From Macrobid) Adverse Reaction (Intermediate, Verified 06/26/24 11:26) Chest tightness levofloxacin (From Levaquin) Adverse Reaction (Verified 06/26/24 11:26) Other Medications ???Medication ???Instructions ???Recorded ???Confirmed ???Type multivitamin,yy-isqk-lykqbiz s 1 tab PO DAILY 01/02/18 06/26/24 H istory (Complete Multivitamin tablet) magnesium hydroxide 400 mg (170 mg mg PO 04/04/19 06/26/24 History magnesium) chewable tablet melatonin 5 mg tablet 5 mg PO HS PRN 02/06/22 06/26/24 H istory syringe with needle 3 mL 25 x 5/8" #50 ea 07/25/22 06/26/24 Rx (BD Eclipse Luer-Gauri) albuterol sulfate 90 mcg/actuation 2 puff inhalation Q4H PRN 06/26/24 Rx aerosol inhaler (ProAir HFA) shortness of breath or wheezing #8.5 grams albuterol sulfate 1.25 mg/3 mL 1.25 mg (3 mL) inhalation Q4H #75 10/22/23 06/26/24 Rx solution for nebulization mL ibuprofen 800 mg tablet 800 mg PO Q8H PRN pain #60 tabs 06/26/24 Rx ascorbate calcium (vitamin C) 500 500 mg PO BID 10/28/23 06/26/24 H istory mg tablet bovine colustrum PO 10/28/23 06/26/24 History cetirizine 10 mg capsule (Zyrtec) 10 mg PO QDAY PRN 01/03/24 History tirzepatide 5 mg/0.5 mL 10 mg subcut QWEEK 06/26/24 History subcutaneous pen injector (Micahunkrissyro) Last Menstrual Period: 02/11/24 PFSH PFSH Medical History Vaginal itching Encounter for well woman exam with routine gynecological exam Vaginal odor Hyperglycemia due to type 2 diabetes mellitus History of live Tonsillectomy planned Hypothyroidism H/O headache H/O urinary tract infection Asthma MONO 10 YEARS ALLERGIC REACTION TO PERTUSSIS mono at 10 yrs allergic reaction to pertussis Surgical History History of cholecystectomy History of cholecystectomy Family History Mother Hypertension High cholesterol Brother Asthma Severe allergy Father Thyroid disorder Other Anxiety Breast cancer Diabetes History of PCOS Hormone deficiency PCOS (polycystic ovarian syndrome) Social History adopted: No household members: spouse number of children: 1 current occupational status: employed current occupation: [employer] Smoking Status: Never smoker second hand exposure: No alcohol intake: current Alcohol type: wine substance use type: does not use what type of physical activity do you participate in: yoga frequency: 1-2 times per week seatbelt use: always do you feel safe at home: Yes 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 Date Name GA/Weeks Outcome Route Bth Weight Gen Labor Lgth Anesthesia Del Locatn Provider FOB 10/26/15 Thanh HPI 1 M CK Details: RAYNA WESTON is a 29 year old Female presenting for a weight management follow up; she is doing well and feeling well today. She is still taking monjaro through her PCP. Has become more in tune with the foods that she is eating and made changes to her nutrition and behaviors. Has increased her steps--will continue to work on exercise. Female Reproductive History Last Menstrual Period: 02/11/24 ROS Const Reports as per HPI, Denies difficulty sleeping, Denies excessive sweating, Denies fatigue (new onset severe) and Denies fever(s) Eyes Denies change in vision and Denies diplopia ENT Denies dizziness Card Denies chest pain, Denies dyspnea, Denies dyspnea on exertion, Denies palpitations and Denies r (more content not included)... Normal [facility] Kitchen Hand Office Visit Reporton 05-23-2024 Kitchen Hand Office Visit Report [facility] [address], [address] [place] [address] OFFICE VISIT Date of Service: 05/23/24 MR#: [id number] Acct: [id number] Name: RAYNA WESTON Rep #: [id number] : 1995 Provider: Dr. Celia tapia MD Age/Sex: 28/F Location: [facility] [place] Status: Signed Intake Vital Signs 05/01/24 09:52 05/23/24 11:04 05/23/24 11:07 05/23/24 11:11 05/23/24 11:48 Height 5 ft 6 in 5 ft 6 in 5 ft 6 in Weight: 245 lb BMI 39.5 BP 157/100 H 160/92 H 140/87 H Pulse 83 Intake Visit Reasons: WEIGHT MANAGEMENT Refrigeration Systems Installer Required: No Is patient in pain?: No Allergies Environmental Allergies: Uncoded Allergy (Intermediate, Verified 05/23/24 11:05) NEEDS FOLLOW-UP empagliflozin (From Jardiance) Adverse Reaction (Severe, Verified 05/23/24 11:05) uti and yeast infections thyroid, pork (From [place] Thyroid) Adverse Reaction (Severe, Verified 05/23/24 11:05) tachycardia and SOB nitrofurantoin (From Macrobid) Adverse Reaction (Intermediate, Verified 05/23/24 11:05) Chest tightness levofloxacin (From Levaquin) Adverse Reaction (Verified 05/23/24 11:05) Other Medications ???Medication ???Instructions ???Recorded ???Confirmed ???Type multivitamin,eu-cmey-uhhdrjz s 1 tab PO DAILY 01/02/18 05/23/24 H istory (Complete Multivitamin tablet) magnesium hydroxide 400 mg (170 mg mg PO 04/04/19 05/23/24 History magnesium) chewable tablet melatonin 5 mg tablet 5 mg PO HS PRN 02/06/22 05/23/24 H istory syringe with needle 3 mL 25 x 5/8" #50 ea 07/25/22 05/23/24 Rx (BD Eclipse Luer-Gauri) albuterol sulfate 90 mcg/actuation 2 puff inhalation Q4H PRN 05/23/24 Rx aerosol inhaler (ProAir HFA) shortness of breath or wheezing #8.5 grams albuterol sulfate 1.25 mg/3 mL 1.25 mg (3 mL) inhalation Q4H #75 10/22/23 05/23/24 Rx solution for nebulization mL ibuprofen 800 mg tablet 800 mg PO Q8H PRN pain #60 tabs 05/23/24 Rx ascorbate calcium (vitamin C) 500 500 mg PO BID 10/28/23 05/23/24 H istory mg tablet bovine colustrum PO 10/28/23 05/23/24 History cetirizine 10 mg capsule (Zyrtec) 10 mg PO QDAY PRN 01/03/24 History tirzepatide 5 mg/0.5 mL 5 mg subcut QWEEK 05/01/24 5 History subcutaneous pen injector (Eduardo) Last Menstrual Period: 02/11/24 Zika: Zika virus screening: Negative : No Have you fallen in the past year?: No PFSH PFSH Medical History Vaginal itching Encounter for well woman exam with routine gynecological exam Vaginal odor Hyperglycemia due to type 2 diabetes mellitus History of live Tonsillectomy planned Hypothyroidism H/O headache H/O urinary tract infection Asthma MONO 10 YEARS ALLERGIC REACTION TO PERTUSSIS mono at 10 yrs allergic reaction to pertussis Surgical History History of cholecystectomy History of cholecystectomy Family History Mother Hypertension High cholesterol Brother Asthma Severe allergy Father Thyroid disorder Other Anxiety Breast cancer Diabetes History of PCOS Hormone deficiency PCOS (polycystic ovarian syndrome) Social History adopted: No household members: spouse number of children: 1 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 Date Name GA/Weeks Outcome Route Bth Weight Infant Gen Labor Lgth Anesthesia Del [facility] Provider FOB 10/26/15 Thanh HARVEYVD HPI WEIGHT MANAGEMENT Details: RAYNA WESTON is a 28 year old Female presenting for a weight management follow-up. She is making changes to her diet and following a balanced calorie nutritional plan and has started on compounded tirzepatide as prescribed by her primary care doctor. She is already lost 8 pounds and is doing well on this medication with minimal side effects. She is very motivated to lose weight as she is wanting to conceive. She is using condoms right now for control. She is wanting to come here for additional nutritional support as needed and will make appointments every 3 months o (more content not included)... Normal [facility] Vitamin D 1,25-Dihydroxyon 0 05-10-2024 VIT D 1,25 DIHY 25.7 pg/mL Normal 24.8-81.5 [facility] Comment on above: Result Comment: Perf ormed at: [facility] [id number] Research [employer] Insights Executive: Annie Lambert MD, Phone: [phone] Performed By: #### M 100.2000, M100.2200, M100.3200 #### [facility] [address] [place], [address] 12 Lead EKGon 05-08-2024 12 Lead EKG [facility] [address] [place] [address] 12 Lead EKG 05/08/24 0847 MR#: [id number] Acct: [id number] Name: RAYNA WESTON Rep #: [id number] : 1995 28 From: Jenni Webb MD Attending Dr: HNAY Maciel Status: REG CLI Ordering Dr: Tete Davis Date: 05/08/24 Location: [facility] Sex: F C Admitted: Test Reason : PRE MEDICATION Blood Pressure : */* mmHG Vent. Rate : 89 BPM Atrial Rate : 89 BPM P-R Int : 132 ms QRS Dur : 70 ms QT Int : 348 ms P-R-T Axes : 63 37 55 degrees QTcB Int : 423 ms Normal sinus rhythm Normal ECG Confirmed by ALEX CARRERA, MOINCA ([id number]), manager editorial KATHI LAMA ([id number]) on 05/08/2024 1:13:50 PM Referred By: Tete Davis Confirmed By: MONICA WEBB MD 05/08/24 1313 Date Jenni Webb MD CC: OVERHEAD GARAGE DOOR HANGER-Dominic Davis; OVERHEAD GARAGE DOOR HANGER-C Lelo Chinchilla Signed Normal [facility] CBC W/Diff, Automatedon 01-3 0-2024 Absolute Lymph 2.75 X10 3/uL Normal 0.83-4.51 [facility] Comment on above: Performed By: #### M , .2199, M100.3200 #### [facility] [address] [place], [address] Absolute Neut 5.3 X10 3/uL Normal 2.0-7.7 [facility] Comment on above: Performed By: #### M , , M100.3200 #### [facility] [address] [place], [address] Basophils/100 WBC (Bld) 0.9 % Normal 0-1 [facility] Comment on above: Performed By: #### M , , M1.3200 #### [facility] [address] [place], [address] Eosinophils/100 WBC (Bld) 1.8 % Normal 0-5 [facility] Comment on above: Performed By: #### M , .2199, M100.3200 #### [facility] [address] [place], [address] Erythrocyte distribution width (RBC) [Ratio] 13.2 % Normal 11.6-14.6 [facility] Comment on above: Performed By: #### M , .0, M100.3200 #### [facility] [address] [place], [address] Hematocrit (Bld) [Volume fraction] 42.7 % Normal 37-47 [facility] Comment on above: Performed By: #### M , .2199, M100.3200 #### [facility] [address] [place], [address] Hemoglobin (Bld) [Mass/Vol] 14.1 g/dL Normal 12.0-15.0 [facility] Comment on above: Performed By: #### M , , 0 #### [facility] [address] [place], [address] IG% 0.300 Normal 0.0-0.9 [facility] Comment on above: Result Comment: IG% - Immature Granulocytes (promyelocytes, myelocytes and metamyelocytes) > 1% indicates that a LEFT SHIFT is Present. Performed By: #### M , , #### [facility] [address] [place], [address] Lymphocytes/100 WBC (Bld) 30.9 % Normal 19-41 [facility] Comment on above: Performed By: #### M , , #### [facility] [address] [place], [address] MCH (RBC) [Entitic mass] 29.0 pg Normal 27.0-32.0 [facility] Comment on above: Performed By: #### M , , .0 #### [facility] [address] [place], [address] MCHC (RBC) [Mass/Vol] 33.0 g/dL Normal 32-36 [facility] Comment on above: Performed By: #### M , , .0 #### [facility] [address] [place], [address] MCV (RBC) [Entitic vol] 87.9 fL Normal 81-99 [facility] Comment on above: Performed By: #### M , , #### [facility] [address] [place], [address] Monocytes/100 WBC (Bld) 6.2 % Normal 0-10 [facility] Comment on above: Performed By: #### M , .2199, M100.3200 #### [facility] [address] [place], [address] Neutrophils/100 WBC (Bld) 59.9 % Normal 47-70 [facility] Comment on above: Performed By: #### M , .2199, M100.3200 #### [facility] [address] [place], [address] Nucleated RBC (Bld) [#/Vol] 0 10*3/uL Normal 0-5 [facility] Comment on above: Performed By: #### M , , M1.3200 #### [facility] [address] [place], [address] Platelet mean volume (Bld) [Entitic vol] 9.7 fL Normal 6.2-12.0 [facility] Comment on above: Performed By: #### M , , M1.3200 #### [facility] [address] [place], [address] Platelets (Bld) [#/Vol] 279 10*3/uL Normal 150-450 [facility] Comment on above: Performed By: #### M , , M100.3200 #### [facility] [address] [place], [address] RBC (Bld) [#/Vol] 4.86 10*6/uL Normal 4.2-5.4 [facility] Comment on above: Performed By: #### M , , M100.3200 #### [facility] [address] [place], [address] RDW SD 42.2 fl Normal 35.1-43.9 [facility] Comment on above: Performed By: #### M , M100.2200, M100.3200 #### [facility] [address] [place], [address] WBC (Bld) [#/Vol] 8.9 10*3/uL Normal 4.4-11.[address] [facility] Comment on above: Performed By: #### M , .0, M100.3200 #### [facility] [address] [place], [address] Comprehensive Metabolic Prof [facility] 05-08-2024 Albumin [Mass/Vol] 3.7 g/dL Normal 3.2-5.[address] [facility] Comment on above: Performed By: #### M , .2199, M100.3200 #### [facility] [address] [place], [address] Albumin/Globulin [Mass ratio] 0.8 {ratio} Low 0.9-2.4 [facility] Comment on above: Performed By: #### M , .2200, M100.3200 #### [facility] [address] [place], [address] ALK P 55 U/L Normal 45-117 [facility] Comment on above: Performed By: #### M 100, M100.2200, M100.3200 #### [facility] [address] [place], [address] ALT [Catalytic activity/Vol] 41 U/L Normal 13-56 [facility] Comment on above: Performed By: #### M , .2200, M100.3200 #### [facility] [address] [place], [address] AST [Catalytic activity/Vol] 27 U/L Normal 15-37 [facility] Comment on above: Performed By: #### M , , #### [facility] [address] [place], [address] Bilirubin [Mass/Vol] 0.70 mg/dL Normal 0.20-1.00 [facility] Comment on above: Result Comment: For patients on eltrombopag therapy, use of Dimension [place] TBIL is not recommended. Performed By: #### M , , #### [facility] [address] [place], [address] BUN/CRE 20.3 RATIO High 10-20 [facility] Comment on above: Performed By: #### , , #### [facility] [address] [place], [address] CA,Total 9.3 mg/dL Normal 8.5-10.1 [facility] Comment on above: Performed By: #### M , , #### [facility] [address] [place], [address] Chloride [Moles/Vol] 106 mmol/L Normal 98-107 [facility] Comment on above: Performed By: #### M , , #### [facility] [address] [place], [address] CO2 [Moles/Vol] 26.0 mmol/L Normal 21.0-32.0 [facility] Comment on above: Performed By: #### M , , #### [facility] [address] [place], [address] Creatinine [Mass/Vol] 0.69 mg/dL Normal 0.55-1.02 [facility] Comment on above: Result Comment: The validity of the calculated GFR GFRAA in patients over 70 years has not been determined. Clinical correlation is essential. Performed By: #### M , .2199, M100.3200 #### [facility] [address] [place], [address] EST GFR - AA 129 mL/min Normal >60 [facility] Comment on above: Result Comment: Afri can Iranian GFR Calc Performed By: #### M , , .0 #### [facility] [address] [place], [address] GAP 7 Normal 5-15 [facility] Comment on above: Performed By: #### M , , .0 #### [facility] [address] [place], [address] GFR/1.73 sq M.predicted among non-blacks MDRD (S/P/Bld) [Vol rate/Area] 106 mL/min/{1.73_m2} Normal >60 [facility] Comment on above: Result Comment: Non- GFR Calc Performed By: #### M , , M1.0 #### [facility] [address] [place], [address] Globulin (S) [Mass/Vol] 4.4 g/dL High 2.2-4.2 [facility] Comment on above: Performed By: #### M , , M1.3200 #### [facility] [address] [place], [address] Glucose [Mass/Vol] 132 mg/dL High 74-[address] [facility] Comment on above: Result Comment: Fast ing Glucose result greater than or equal to 126 mg/dL suggests DIABETES MELLITUS per A.D.A. criteria. Performed By: #### M , , .0 #### [facility] [address] [place], [address] Potassium [Moles/Vol] 3.6 mmol/L Normal 3.5-5.1 [facility] Comment on above: Performed By: #### M , , #### [facility] [address] [place], [address] Sodium [Moles/Vol] 139 mmol/L Normal 136-[address] [facility] Comment on above: Performed By: #### M , , .0 #### [facility] [address] [place], [address] T PROT 8.1 g/dL Normal 6.4-8.2 [facility] Comment on above: Performed By: #### M , , .0 #### [facility] [address] [place], [address] Urea nitrogen [Mass/Vol] 14 mg/dL Normal 7-18 [facility] Comment on above: Performed By: #### M , , .0 #### [facility] [address] [place], [address] Hemoglobin A1con 05-08-2024 HbA1c (Bld) [Mass fraction] 7.3 % High 3.8-5.6 [facility] Comment on above: Result Comment: Norm al < 5.7 % Prediabetic 5.7 - 6.4 % Diabetic >or= 6.5 % Please note range changes. Performed By: #### M , , .0 #### [facility] [address] [place], [address] Lipid Profileon 05-08-2024 Cholesterol [Mass/Vol] 186 mg/dL Normal 200 [facility] Comment on above: Result Comment: <200 mg/dL Desirable 200-240 mg/dL Borderline >240 mg/dL High Risk Performed By: #### M , M1.2199, M100.3200 #### [facility] [address] [place], [address] Cholesterol in HDL [Mass/Vol] 47 mg/dL Normal [facility] Comment on above: Result Comment: The drugs N-Acetylcysteine and Metamizole may falsely depress this assay. Reference Range HDL <40 mg/dL Low HDL Cholesterol HDL >or= 60 mg/dL High HDL Cholesterol Performed By: #### M , , M100.3200 #### [facility] [address] [place], [address] Cholesterol in LDL [Mass/Vol] 109 mg/dL Normal 0-130 [facility] Comment on above: Performed By: #### M , , M100.3200 #### [facility] [address] [place], [address] Cholesterol in VLDL [Mass/Vol] 30 mg/dL Normal 5-40 [facility] Comment on above: Performed By: #### M , , M100.3200 #### [facility] [address] [place], [address] Triglyceride [Mass/Vol] 151 mg/dL Normal [facility] Comment on above: Result Comment: The drugs N-Acetylcysteine and Metamizole may falsely depress this assay. Serum Triglycerides Reference Interval Normal <150 mg/dL Borderline high 150 - 199 mg/dL High 200 - 499 mg/dL Very High > or = 500 mg/dL Performed By: #### M , M1, M100.3200 #### [facility] [address] [place], [address] Urine Cultureon 05-02-2024 URC Culture exhibits no growth. Normal [facility] Comment on above: Performed By: #### M 100.2200 #### [facility] [address] [place], [address] Kitchen Hand Office Visit Reporton 05-01-2024 Kitchen Hand Office Visit Report [facility] [place] [address] [facility] [address], [address] [place] [address] OFFICE VISIT Date of Service: 05/01/24 MR#: [id number] Acct: [id number] Name: RAYNA WESTON Rep #: [id number] : 1995 Provider: HANY Jay Age/Sex: 28/F Location: [facility] [place] Status: Signed with Addenda ADDENDUM by HANY Davis on 05/01/24 at 1416 Assessment and Plan Assessment and Plan (1) Diabetes mellitus, type II: Status: Acute Qualifiers: Diabetes mellitus mcc insulin use: without mcc use Diabetes mellitus complication status: with hyperglycemia Qualified Code(s): E11.65 - Type 2 diabetes mellitus with hyperglycemia Comment: monjuaro through PCP. (2) PCOS (polycystic ovarian syndrome): Status: Acute Comment: recommend comprehensive program of endometrial protection, weight management, nutrition. labs ordered (3) Insulin resistance: Status: Acute (4) Other obesity due to excess calories: Status: Acute (5) Body mass index (BMI) greater than 40: Status: Acute (6) Dysuria: Status: Acute (7) Hypothyroidism (acquired): Status: Acute (8) Hypertension: Status: Chronic Orders: Orders POC Urinalysis Dip (Clinic) Today R30.0 - Dysuria Culture, Urine Today R30.0 - Dysuria POC Urine Today Z30.9 - Encounter for contraceptive management, unspecified CBC W/Diff, Automated Today E11.65 - Type 2 diabetes mellitus with hyperglycemia, I10 - Essential (primary) hypertension Comprehensive Metabolic Profil Today E11.65 - Type 2 diabetes mellitus with hyperglycemia, I10 - Essential (primary) hypertension Hemoglobin A1c Today E11.65 - Type 2 diabetes mellitus with hyperglycemia Lipid Profile Today Z13.220 - Encounter for screening for lipoid disorders Vitamin D 1,25-Dihydroxy Today Z13.21 - Encounter for screening for nutritional disorder 12 Lead EKG Today E66.09 - Other obesity due to excess calories, I10 - Essential (primary) hypertension 05/01/24 1416 Date Tete Davis OVERHEAD GARAGE DOOR HANGER-C cc: Dr. Celia Chopra MD * Signed Intake Vital Signs 02/27/24 09:17 05/01/24 09:52 05/01/24 10:16 Height 5 ft 6 in 5 ft 6 in Weight: 253 lb BMI 40.8 BP 169/92 H 154/91 H Pulse 82 Pulse Source NIBP Intake Visit Reasons: WEIGHT MANAGEMENT PER CB, 10 dip urine Refrigeration Systems Installer Required: No Is patient in pain?: Yes (pain with urination) Feel stressed/tense/nervous/anxio us/difficulty sleeping: not at all Allergies Environmental Allergies: Uncoded Allergy (Intermediate, Verified 05/01/24 09:56) NEEDS FOLLOW-UP empagliflozin (From Jardiance) Adverse Reaction (Severe, Verified 05/01/24 09:56) uti and yeast infections thyroid, pork (From [place] Thyroid) Adverse Reaction (Severe, Verified 05/01/24 09:56) tachycardia and SOB nitrofurantoin (From Macrobid) Adverse Reaction (Intermediate, Verified 05/01/24 09:56) Chest tightness levofloxacin (From Levaquin) Adverse Reaction (Verified 05/01/24 09:56) Other Medications ???Medication ???Instructions ???Recorded ???Confirmed ???Type multivitamin,yw-aljh-vmyexds s 1 tab PO DAILY 01/02/18 05/01/24 History (Complete Multivitamin tablet) magnesium hydroxide 400 mg (170 mg mg PO 04/04/19 05/01/24 History magnesium) chewable tablet melatonin 5 mg tablet 5 mg PO HS PRN 02/06/22 05/01/24 History syringe with needle 3 mL 25 x 5/8" #50 ea 07/25/22 05/01/24 Rx (BD Eclipse Luer-Gauri) albuterol sulfate 90 mcg/actuation 2 puff inhalation Q4H PRN 01/02/23 05/01/24 Rx aerosol inhaler (ProAir HFA) shortness of breath or wheezing #8.5 grams phenazopyridine 200 mg tablet 200 mg PO TID PRN pain #10 tabs 08/31/23 05/01/24 Rx (Pyridium) albuterol sulfate 1.25 mg/3 mL 1.25 mg (3 mL) inhalation Q4H #75 10/22/23 05/01/24 Rx solution for nebulization mL ibuprofen 800 mg tablet 800 mg PO Q8H PRN pain #60 tabs 10/22/23 05/01/24 Rx ascorbate calcium (vitamin C) 500 500 mg PO BID 10/28/23 05/01/24 History mg tablet bovine colustrum PO 10/28/23 05/01/24 History cetirizine 10 mg capsule (Zyrtec) 10 mg PO QDAY PRN 01/03/24 05/01/24 History metformin 500 mg tablet 500 mg PO BID #180 tabs 01/03/24 05/01/24 Rx fluconazole 150 mg tablet 150 mg PO Q3D 3 doses #3 tabs 03/24/24 05/01/24 Rx fluconazole 100 mg tablet 100 mg PO QDAY PRN 05/01/24 History tirzepatide 5 mg/0.5 mL 5 mg subcut QWEEK 05/01/24 05/01/24 History subcutaneous pen injector (Mounjaro) Last Menstrual Period: 02/11/24 Current gender identity: female Zika: Zika virus screening: Negative : No Have you fallen in the past year?: No PFSH PFS Medical History Vaginal itching Encounter for well woman exam with routine gynecological exam Vaginal odor (more content not included)... Normal [facility] 17-Hydroxyprogesteroneon 17ALPHA [place]-PROG 39 ng/dL Normal . [facility] Comment on above: Order Comment: Test( s) 960906-51-[id number] Progesterone LCMSwas developed and its performance characteristicsdetermined by [facility]. It has not been cleared or approvedby the Food and Drug Administration.N Result Comment: Adul t Female Follicular 15 - 70 Luteal 35 - 290 Performed at: [address] [id number] Research & Insights Executive: Annie Lambert MD, Phone: [phone] Performed By: #### M , , .0 #### [facility] [address] [place], [address] DHEA Sulfateon 03-01-2024 DHEA SULFATE 227.0 ug/dL Normal 84.8-378.0 [facility] Comment on above: Order Comment: N Performed By: #### M , , #### [facility] [address] [place], [address] PROLACTIN 4465on 03-01-2024 PROLACTIN 7.6 ng/mL Normal 4.8-33.4 [facility] Comment on above: Order Comment: N Performed By: #### M , , #### [facility] [address] [place], [address] Testosterone Freeon 03-01-20 24 TESTOSTER FREE 3.9 pg/mL Normal 0.0-4.2 [facility] Comment on above: Order Comment: N Result Comment: Perf ormed at: [address] [id number] Research [employer] Insights Executive: Bright Juarez PhD, Phone: [phone] Performed at: [address] [id number] [employer] Executive: Annie Lambert MD, Phone: [phone] Performed By: #### M , , #### [facility] [address] [place], [address] CBC W/Diff, Automatedon 11-2 Absolute Lymph 3.09 X10 3/uL Normal 0.83-4.51 [facility] Comment on above: Performed By: #### M , , M100.3200 #### [facility] [address] [place], [address] Absolute Neut 5.6 X10 3/uL Normal 2.0-7.7 [facility] Comment on above: Performed By: #### M , , M1.3200 #### [facility] [address] [place], [address] Basophils/100 WBC (Bld) 0.9 % Normal 0-1 [facility] Comment on above: Performed By: #### M , , .3200 #### [facility] [address] [place], [address] Eosinophils/100 WBC (Bld) 1.3 % Normal 0-5 [facility] Comment on above: Performed By: #### M , , M1.3200 #### [facility] [address] [place], [address] Erythrocyte distribution width (RBC) [Ratio] 14.0 % Normal 11.6-14.6 [facility] Comment on above: Performed By: #### M , , M1.3200 #### [facility] [address] [place], [address] Hematocrit (Bld) [Volume fraction] 41.6 % Normal 37-47 [facility] Comment on above: Performed By: #### M , , M1.3200 #### [facility] [address] [place], [address] Hemoglobin (Bld) [Mass/Vol] 13.8 g/dL Normal 12.0-15.0 [facility] Comment on above: Performed By: #### M , , #### [facility] [address] [place], [address] IG% 0.900 Normal 0.0-0.9 [facility] Comment on above: Result Comment: IG% - Immature Granulocytes (promyelocytes, myelocytes and metamyelocytes) > 1% indicates that a LEFT SHIFT is Present. Performed By: #### M , , #### [facility] [address] [place], [address] Lymphocytes/100 WBC (Bld) 33.0 % Normal 19-41 [facility] Comment on above: Performed By: #### M , , #### [facility] [address] [place], [address] MCH (RBC) [Entitic mass] 29.1 pg Normal 27.0-32.0 [facility] Comment on above: Performed By: #### M , , #### [facility] [address] [place], [address] MCHC (RBC) [Mass/Vol] 33.2 g/dL Normal 32-36 [facility] Comment on above: Performed By: #### M , , #### [facility] [address] [place], [address] MCV (RBC) [Entitic vol] 87.6 fL Normal 81-99 [facility] Comment on above: Performed By: #### M , , #### [facility] [address] [place], [address] Monocytes/100 WBC (Bld) 4.8 % Normal 0-10 [facility] Comment on above: Performed By: #### M , , .0 #### [facility] [address] [place], [address] Neutrophils/100 WBC (Bld) 59.1 % Normal 47-70 [facility] Comment on above: Performed By: #### M , , .0 #### [facility] [address] [place], [address] Nucleated RBC (Bld) [#/Vol] 0 10*3/uL Normal 0-5 [facility] Comment on above: Performed By: #### M , , #### [facility] [address] [place], [address] Platelet mean volume (Bld) [Entitic vol] 9.5 fL Normal 6.2-12.0 [facility] Comment on above: Performed By: #### M , , .0 #### [facility] [address] [place], [address] Platelets (Bld) [#/Vol] 291 10*3/uL Normal 150-450 [facility] Comment on above: Performed By: #### M , , .0 #### [facility] [address] [place], [address] RBC (Bld) [#/Vol] 4.75 10*6/uL Normal 4.2-5.4 [facility] Comment on above: Performed By: #### M , , #### [facility] [address] [place], [address] RDW SD 45.0 fl High 35.1-43.9 [facility] Comment on above: Performed By: #### M , , #### [facility] [address] [place], [place], [address] WBC (Bld) [#/Vol] 9.4 10*3/uL Normal 4.4-11.[address] [facility] Comment on above: Performed By: #### M , , #### [facility] [address] [place], [place], [address] Estradiolon 02-27-2024 ESTRADIOL 30.3 pg/mL Normal [facility] Comment on above: Result Comment: NORM AL REFERENCE RANGES FEMALE FOLLICULAR 21.4 - 164.8 pg/mL MID-CYCLE PEAK 49.9 - 367.2 pg/mL LUTEAL 40.2 - 259.0 pg/mL POST-MENOPAUSAL ON MHT <11.0 - 462.1 pg/mL NOT ON MHT <11.0 - 58.3 pg/mL MALE <11.0 - 52.5 pg/mL NOTE: [facility] HAS CONFIRMED THE DRUG FULVETRANT (FASLODEX) MAY CAUSE FALSELY ELEVATED ESTRADIOL RESULTS WHEN USING THIS TEST METHOD. IF PATIENT IS TAKING FULVESTRANT AN ALTERNATIVE METHOD SHOULD BE USED TO DETERMINE ESTRADIOL CONCENTRATION. Performed By: #### M , , #### [facility] [address] [place], [place], [address] Follicle Stimulating Hormone on 02-27-2024 FSH 7.5 mIU/mL Normal [facility] Comment on above: Result Comment: NORMAL REFERENCE RANGES FEMALE FOLLICULAR 2.3 - 12.6 mIU/mL MID-CYCLE PEAK 5.2 - 17.5 mIU/mL LUTEAL 1.7 - 12.9 mIU/mL POST-MENOPAUSAL ON MHT 5.9 - 72.8 mIU/mL NOT ON MHT 12.7 - 132.2 mlU/mL MALE 0.7 - 10.8 mIU/mL Performed By: #### M , , #### [facility] [address] [place], [address] Kitchen Hand Office Visit Reporton 02-27-2024 Kitchen Hand Office Visit Report [facility] [address], [address] [place] [address] OFFICE VISIT Date of Service: 02/27/24 MR#: [id number] Acct: [id number] Name: RAYNA WESTON Rep #: [id number] : 1995 Provider: Dr. Celia tapia MD Age/Sex: 28/F Location: [facility] [place] Status: Signed Intake Vital Signs 01/14/24 15:55 02/27/24 09:17 02/27/24 09:17 Height 5 ft 6 in 5 ft 6 in 5 ft 6 in Weight: 252 lb 4 oz BMI 40.7 BP 165/96 H Intake Visit Reasons: PCOS ISSUES- SUPER HEAVY BLEEDING Refrigeration Systems Installer Required: No Is patient in pain?: No Allergies Environmental Allergies: Uncoded Allergy (Intermediate, Verified 02/27/24 09:16) NEEDS FOLLOW-UP empagliflozin (From Jardiance) Adverse Reaction (Severe, Verified 02/27/24 09:16) uti and yeast infections thyroid, pork (From [place] Thyroid) Adverse Reaction (Severe, Verified 02/27/24 09:16) tachycardia and SOB nitrofurantoin (From Macrobid) Adverse Reaction (Intermediate, Verified 02/27/24 09:16) Chest tightness levofloxacin (From Levaquin) Adverse Reaction (Verified 02/27/24 09:16) Other Medications ???Medication ???Instructions ???Recorded ???Confirmed ???Type multivitamin,xj-mllv-ujblsti s 1 tab PO DAILY 01/02/18 02/27/24 History (Complete Multivitamin tablet) magnesium hydroxide 400 mg (170 mg mg PO 04/04/19 02/27/24 History magnesium) chewable tablet melatonin 5 mg tablet 5 mg PO HS PRN 02/06/22 02/27/24 History syringe with needle 3 mL 25 x 5/8" #50 ea 07/25/22 02/27/24 Rx (BD Eclipse Luer-Gauri) albuterol sulfate 90 mcg/actuation 2 puff inhalation Q4H PRN 01/02/23 02/27/24 Rx aerosol inhaler (ProAir HFA) shortness of breath or wheezing #8.5 grams phenazopyridine 200 mg tablet 200 mg PO TID PRN pain #10 tabs 08/31/23 02/27/24 Rx (Pyridium) albuterol sulfate 1.25 mg/3 mL 1.25 mg (3 mL) inhalation Q4H #75 10/22/23 02/27/24 Rx solution for nebulization mL ibuprofen 800 mg tablet 800 mg PO Q8H PRN pain #60 tabs 10/22/23 02/27/24 Rx ascorbate calcium (vitamin C) 500 500 mg PO BID 10/28/23 02/27/24 History mg tablet bovine colustrum PO 10/28/23 02/27/24 History tumeric/curcumin/tori PO 10/28/23 02/27/24 History cetirizine 10 mg capsule (Zyrtec) 10 mg PO QDAY PRN 01/03/24 02/27/24 History lactobacillus combination no.4 3 3,000 mmu cells PO QDAY 01/03/24 02/27/24 History billion cell capsule (Probiotic) metformin 500 mg tablet 500 mg PO BID #180 tabs 01/03/24 02/27/24 Rx thyroid (pork) 15 mg tablet 15 mg PO DAILY #30 tabs 01/07/24 02/27/24 Rx ([place] Thyroid) metronidazole 500 mg tablet 500 mg PO BID #14 tabs 01/09/24 02/27/24 Rx glimepiride 4 mg tablet 4 mg PO QAM #90 tabs 01/14/24 02/27/24 Rx cyanocobalamin (vitamin B-12) 1,000 mcg IM QWEEK 90 days #13 mL 01/15/24 02/27/24 Rx 1,000 mcg/mL injection solution norethindrone (contraceptive) 0.35 0.35 mg PO DAILY #28 tabs 02/27/24 02/27/24 Rx mg tablet Post menopausal: No Patient : No : No PFSH Medical History Vaginal itching Encounter for well woman exam with routine gynecological exam Vaginal odor Hyperglycemia due to type 2 diabetes mellitus History of live Tonsillectomy planned Hypothyroidism H/O headache H/O urinary tract infection Asthma MONO 10 YEARS ALLERGIC REACTION TO PERTUSSIS mono at 10 yrs allergic reaction to pertussis Surgical History History of cholecystectomy History of cholecystectomy Family History Mother Hypertension High cholesterol Brother Asthma Severe allergy Father Thyroid disorder Other Anxiety Breast cancer Diabetes History of PCOS Hormone deficiency PCOS (polycystic ovarian syndrome) Social History adopted: No household members: spouse number of children: 1 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 HPI PCOS ISSUES- SUPER HEAVY BLEEDING Details: RAYNA WESTON is a 28 year old who presents for irregular menses. she has only had a few menses this last year had significant issues with weight gain very heavy bleeding saturating a pad every hour to an bleeding for 10 to 14 days. She was diagnosed with PCOS years ago and was seeing an baton teacher. She also now has diabetes and high cholesterol. She is being treated fo (more content not included)... Normal [facility] T4 Free Directon 02-27-2024 T4 FREE DIRECT 0.89 ng/dL Normal 0.76-1.46 [facility] Comment on above: Performed By: #### M 100.2000, M100.2200, M100.3200 #### [facility] [address] [place], [address] Testosterone, Serum Totalon 02-27-2024 Testosterone [Mass/Vol] 39.92 ng/dL Normal [facility] Comment on above: Result Comment: CENT RAL 90% REFERENCE RANGES MALE AGE <50 197.44 - 669.58 ng/dL MALE AGE > or = 50 187.72 - 684.19 ng/dL FEMALE AGE <50 8.38 - 35.01 ng/dL FEMALE AGE > or = 50 <7.00 - 35.92 ng/dL Effective as of 11/02/20 Performed By: #### M 100.1999, M100.2200, M100.3200 #### [facility] [address] [place], [address] Genital Culture Comprehensiv alis 01-11-2024 VAC Reason for Exam: dys uria Normal vaginal michel isolated. No yeast, Gardnerella, Neisseria or beta-hemolytic Streptococcus isolated. GNR lactose farmworker fur Amount Growth Rare Normal [facility] Comment on above: Performed By: #### M 100.1999, M100.2200, M100.3200 #### [facility] [address] [place], [address] Urine Cultureon 01-11-2024 URC Below infection leve l. GNR lactose farmworker fur Mary Alice Count <1000 Normal [facility] Comment on above: Performed By: #### M 100.1999, M100.2200, M100.3200 #### [facility] [address] [place], [address] Gram Stainon 01-09-2024 GS Reason for Exam: dys uria Gram Stain Rare Epithelial cells 2+ Gram positive rods No Gram negative diplococci Score = 2 Interpretation: 0-3 Normal, 4-6 Intermediate, 7-10 Positive BV Normal [facility] Comment on above: Performed By: #### M 100.1999, M100.2200, M100.3200 #### [facility] [address] [place], [address] Kitchen Hand Office Visit Reporton 01-09-2024 Kitchen Hand Office Visit Report [facility] [address], [address] [place] [address] OFFICE VISIT Date of Service: 01/09/24 MR#: [id number] Acct: [id number] Name: RAYNA WESTON Rep #: [id number] : 1995 Provider: MONIKA Cook ams Age/Sex: 28/F Location: [facility] Status: Signed Intake Vital Signs 01/03/24 09:36 01/09/24 11:15 01/09/24 11:17 Height 5 ft 6 in 5 ft 6 in 5 ft 6 in Weight: 252 lb BMI 40.6 BP 161/104 H 152/96 H Intake Visit Reasons: Possible BV Refrigeration Systems Installer Required: No Is patient in pain?: No Allergies Environmental Allergies: Uncoded Allergy (Intermediate, Verified 01/09/24 11:16) NEEDS FOLLOW-UP levofloxacin (From Levaquin) Adverse Reaction (Verified 01/09/24 11:16) Other Medications ???Medication ???Instructions ???Recorded ???Confirmed ???Type multivitamin,xm-auyw-nbrublw s 1 tab PO DAILY 01/02/18 01/09/24 History (Complete Multivitamin tablet) magnesium hydroxide 400 mg (170 mg mg PO 04/04/19 01/09/24 History magnesium) chewable tablet melatonin 5 mg tablet 5 mg PO HS PRN 02/06/22 01/09/24 History syringe with needle 3 mL 25 x 5/8" #50 ea 07/25/22 01/09/24 Rx (BD Eclipse Luer-Gauri) cyanocobalamin (vitamin B-12) 1,000 mcg IM QWEEK 07/26/22 01/09/24 History 1,000 mcg/mL injection solution albuterol sulfate 90 mcg/actuation 2 puff inhalation Q4H PRN 01/02/23 01/09/24 Rx aerosol inhaler (ProAir HFA) shortness of breath or wheezing #8.5 grams phenazopyridine 200 mg tablet 200 mg PO TID PRN pain #10 tabs 08/31/23 01/09/24 Rx (Pyridium) albuterol sulfate 1.25 mg/3 mL 1.25 mg (3 mL) inhalation Q4H #75 10/22/23 01/09/24 Rx solution for nebulization mL ibuprofen 800 mg tablet 800 mg PO Q8H PRN pain #60 tabs 10/22/23 01/09/24 Rx ascorbate calcium (vitamin C) 500 500 mg PO BID 10/28/23 01/09/24 History mg tablet bovine colustrum PO 10/28/23 01/09/24 History tumeric/curcumin/tori PO 10/28/23 01/09/24 History fluconazole 150 mg tablet 150 mg PO Q3D 3 doses #3 tabs 12/17/23 01/09/24 Rx cetirizine 10 mg capsule (Zyrtec) 10 mg PO QDAY PRN 01/03/24 01/09/24 History lactobacillus combination no.4 3 3,000 mmu cells PO QDAY 01/03/24 01/09/24 History billion cell capsule (Probiotic) metformin 500 mg tablet 500 mg PO BID #180 tabs 01/03/24 01/09/24 Rx thyroid (pork) 15 mg tablet 15 mg PO DAILY #30 tabs 01/07/24 01/09/24 Rx ([place] Thyroid) metronidazole 500 mg tablet 500 mg PO BID #14 tabs 01/09/24 01/09/24 Rx nitrofurantoin 100 mg PO BID 7 days #14 caps 01/09/24 01/09/24 Rx monohydrate/macrocrystals 100 mg capsule (Macrobid) [facility] Medical History (Updated 01/09/24 @ 11:56 by Natasha Juarez CNM) Vaginal itching Encounter for well woman exam with routine gynecological exam Vaginal odor Diabetes Hyperglycemia due to type 2 diabetes mellitus History of live Tonsillectomy planned Hypothyroidism H/O headache H/O urinary tract infection Asthma MONO 10 YEARS ALLERGIC REACTION TO PERTUSSIS mono at 10 yrs allergic reaction to pertussis Surgical History History of cholecystectomy History of cholecystectomy Family History Mother Hypertension High cholesterol Brother Asthma Severe allergy Father Thyroid disorder Other Anxiety Breast cancer Diabetes History of PCOS Hormone deficiency PCOS (polycystic ovarian syndrome) Social History (Updated 01/03/24 @ 09:43 by Franchesca Antony) adopted: No household members: spouse number of children: 1 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 Had diflucan at home and took this last night. She is feeling 90% relief this morning. Had culture done 12/31 which was normal. Thinks her trigger is her Menses. reported spotting after started on synthroid from PCP. 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 Was having SOB and heart palpitations so stopped taking all together. Does have an appt with [facility] in March. Still using vaginal probiotics and Boric acid to help with sx. Female Reproductive History Last Menstrual Period: 12/26/23 History 1 Elective abortions Hx Para 1 Spontaneous abortions Hx # Term Pregnancies Ectopic preg (more content not included)... Normal [facility] Kitchen Hand Office Visit Reporton 01-03-2024 Kitchen Hand Office Visit Report [facility] [address] [place] [address], [address] [place] [address] OFFICE VISIT Date of Service: 01/03/24 MR#: [id number] Acct: [id number] Name: RAYNA WESTON Rep #: [id number] : 1995 Provider: MONIKA Cook ams Age/Sex: 28/F Location[place] [facility] [place] Status: Signed Intake Vital Signs 10/23/23 16:31 12/17/23 12:39 01/03/24 09:28 01/03/24 09:36 Height 5 ft 6 in 5 ft 6 in 5 ft 6 in 5 ft 6 in Weight: 255 lb BMI 41.1 BP 160/89 H Intake Visit Reasons: Annual (AD TRAFFICKER)/discuss family planning Refrigeration Systems Installer Required: No Is patient in pain?: No Allergies Environmental Allergies: Uncoded Allergy (Intermediate, Verified 01/03/24 09:28) NEEDS FOLLOW-UP levofloxacin (From Levaquin) Adverse Reaction (Verified 01/03/24 09:28) Other Medications ???Medication ???Instructions ???Recorded ???Confirmed ???Type multivitamin,bg-qwuo-xxnxzbg s 1 tab PO DAILY 01/02/18 01/03/24 History (Complete Multivitamin tablet) magnesium hydroxide 400 mg (170 mg mg PO 04/04/19 01/03/24 History magnesium) chewable tablet melatonin 5 mg tablet 5 mg PO HS PRN 02/06/22 01/03/24 History syringe with needle 3 mL 25 x 5/8" #50 ea 07/25/22 12/17/23 Rx (BD Eclipse Luer-Gauri) cyanocobalamin (vitamin B-12) 1,000 mcg IM QWEEK 07/26/22 01/03/24 History 1,000 mcg/mL injection solution albuterol sulfate 90 mcg/actuation 2 puff inhalation Q4H PRN 01/02/23 01/03/24 Rx aerosol inhaler (ProAir HFA) shortness of breath or wheezing #8.5 grams phenazopyridine 200 mg tablet 200 mg PO TID PRN pain #10 tabs 08/31/23 01/03/24 Rx (Pyridium) albuterol sulfate 1.25 mg/3 mL 1.25 mg (3 mL) inhalation Q4H #75 10/22/23 01/03/24 Rx solution for nebulization mL ibuprofen 800 mg tablet 800 mg PO Q8H PRN pain #60 tabs 10/22/23 01/03/24 Rx metformin 500 mg tablet 500 mg PO QDAY #90 tabs 10/23/23 01/03/24 Rx ascorbate calcium (vitamin C) 500 500 mg PO BID 10/28/23 01/03/24 History mg tablet bovine colustrum PO 10/28/23 01/03/24 History tumeric/curcumin/tori PO 10/28/23 01/03/24 History fluconazole 150 mg tablet 150 mg PO Q3D 3 doses #3 tabs 12/17/23 01/03/24 Rx cetirizine 10 mg capsule (Zyrtec) 10 mg PO QDAY PRN 01/03/24 01/03/24 History lactobacillus combination no.4 3 3,000 mmu cells PO QDAY 01/03/24 01/03/24 History billion cell capsule (Probiotic) Is last menstrual period known: Yes Last Menstrual Period: 12/26/23 Post menopausal: No Patient : No : No Control Method: no PFSH Medical History (Updated 01/03/24 @ 10:16 by Natasha Juarez CNM) Vaginal itching Vaginal odor Diabetes Hyperglycemia due to type 2 diabetes mellitus History of live Tonsillectomy planned Hypothyroidism H/O headache H/O urinary tract infection Asthma MONO 10 YEARS ALLERGIC REACTION TO PERTUSSIS mono at 10 yrs allergic reaction to pertussis Surgical History History of cholecystectomy History of cholecystectomy Family History Mother Hypertension High cholesterol Brother Asthma Severe allergy Father Thyroid disorder Other Anxiety Breast cancer Diabetes History of PCOS Hormone deficiency PCOS (polycystic ovarian syndrome) Social History (Updated 01/03/24 @ 09:43 by Franchesca Antony) adopted: No household members: spouse number of children: 1 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 Doing much better since last visit. Has concerns with irregular menses as she would like to conceive. Hx PCOS. Had labs done with PCP that showed DM and hypothyroid in October. Started on Metformin but has not had additional labs done. Encouraged to call PCP for hypothyroid or referral to Dr Fletcher. Patient would like to see but will call PCP to see if she will start Synthroid now. Last PAP: 2021 History of abnormal PAP: no Last mammogram: Age 39 History of abnormal mamm (more content not included)... Normal [facility] Genital Culture Comprehensiv alis 12-20-2023 VAC Reason for Exam: vag inal odor No yeast, Neisseria or beta-hemolytic Streptococcus isolated. G. vaginalis (Presumptive) Amount Growth 1+ Normal [facility] Comment on above: Performed By: #### M 100.7490 #### [facility] [address] [place], [address] Gram Stainon 12-17-2023 GS Reason for Exam: vag inal odor Gram Stain Rare Epithelial cells Rare Gram positive rods No Gram negative diplococci Score = 3 Interpretation: 0-3 Normal, 4-6 Intermediate, 7-10 Positive BV * This is an amended result. * A prior result that was reported as final has been changed. 12/18/23 1059 by ANGELA Previously reported as: FINAL Normal [facility] Comment on above: Performed By: #### M 100.2200 #### [facility] [address] [place], [address] Kitchen Hand Office Visit Reporton 12-17-2023 Kitchen Hand Office Visit Report [facility] [address], [address] [place] [address] OFFICE VISIT Date of Service: 12/17/23 MR#: [id number] Acct: [id number] Name: RAYNA WESTON Rep #: [id number] : 1995 Provider: MONIKA Cook ams Age/Sex: 28/F Location: [facility] Status: Signed Intake Vital Signs 10/23/23 16:31 12/14/23 15:51 12/17/23 12:38 12/17/23 12:39 Height 5 ft 6 in 5 ft 6 in 5 ft 6 in 5 ft 6 in Weight: 254 lb BMI 41.0 BP 147/90 H Intake Visit Reasons: VAGINAL IRRITATION (ALREADY TREATED FOR YEAST) Refrigeration Systems Installer Required: No Is patient in pain?: No Allergies Environmental Allergies: Uncoded Allergy (Intermediate, Verified 12/17/23 12:39) NEEDS FOLLOW-UP metformin Adverse Reaction (Severe, Verified 12/17/23 12:39) diarrhea levofloxacin (From Levaquin) Adverse Reaction (Verified 12/17/23 12:39) Other Medications ???Medication ???Instructions ???Recorded ???Confirmed ???Type multivitamin,bv-ynyr-uwctmlj s 1 tab PO DAILY 01/02/18 12/17/23 History (Complete Multivitamin tablet) magnesium hydroxide 400 mg (170 mg mg PO 04/04/19 12/17/23 History magnesium) chewable tablet levocetirizine 5 mg tablet (Xyzal) 5 mg PO DAILY 02/11/20 12/17/23 History melatonin 5 mg tablet 5 mg PO HS PRN 02/06/22 12/17/23 History syringe with needle 3 mL 25 x 5/8" #50 ea 07/25/22 12/17/23 Rx (BD Eclipse Luer-Gauri) cyanocobalamin (vitamin B-12) 1,000 mcg IM QWEEK 07/26/22 12/17/23 History 1,000 mcg/mL injection solution albuterol sulfate 90 mcg/actuation 2 puff inhalation Q4H PRN 01/02/23 12/17/23 Rx aerosol inhaler (ProAir HFA) shortness of breath or wheezing #8.5 grams phenazopyridine 200 mg tablet 200 mg PO TID PRN pain #10 tabs 08/31/23 12/17/23 Rx (Pyridium) empagliflozin 10 mg tablet 10 mg PO DAILY 09/09/23 12/17/23 History (Jardiance) albuterol sulfate 1.25 mg/3 mL 1.25 mg (3 mL) inhalation Q4H #75 10/22/23 12/17/23 Rx solution for nebulization mL ibuprofen 800 mg tablet 800 mg PO Q8H PRN pain #60 tabs 10/22/23 12/17/23 Rx ciprofloxacin HCl 500 mg tablet 500 mg PO BID #14 tabs 10/23/23 12/17/23 Rx (Cipro) empagliflozin 10 mg tablet 10 mg PO DAILY 10/23/23 12/17/23 History (Jardiance) metformin 500 mg tablet 500 mg PO QDAY #90 tabs 10/23/23 12/17/23 Rx D-Mannose 2000 mg/cranberry 500 mg PO 10/28/23 12/17/23 History /[id number] Javed/D-chiro Inosital PO 10/28/23 12/17/23 History ascorbate calcium (vitamin C) 500 500 mg PO BID 10/28/23 12/17/23 History mg tablet astaxanthin 12 mg capsule mg PO 10/28/23 12/17/23 History bovine colustrum PO 10/28/23 12/17/23 History tumeric/curcumin/tori PO 10/28/23 12/17/23 History vit D pyridoxoine panthothenic acid PO 10/28/23 12/17/23 History fluconazole 150 mg tablet 150 mg PO Q3D 2 doses #2 tabs 11/29/23 12/17/23 Rx fluconazole 100 mg tablet 100 mg PO QDAY #30 tabs 12/07/23 12/17/23 Rx fluconazole 150 mg tablet 150 mg PO Q3D 3 doses #3 tabs 12/17/23 12/17/23 Rx semaglutide 0.25 mg or 0.5 mg (2 0.5 mg subcut QWEEK 12/17/23 12/17/23 History mg/1.5 mL) subcutaneous pen injector [facility] Medical History (Updated 12/17/23 @ 12:54 by Natasha Juarez CNM) Hyperglycemia due to type 2 diabetes mellitus History of live Tonsillectomy planned Hypothyroidism H/O headache H/O urinary tract infection Asthma MONO 10 YEARS ALLERGIC REACTION TO PERTUSSIS mono at 10 yrs allergic reaction to pertussis Surgical History History of cholecystectomy History of cholecystectomy Family History Mother Hypertension High cholesterol Brother Asthma Severe allergy Father Thyroid disorder Other Anxiety Breast cancer Diabetes History of PCOS Hormone deficiency PCOS (polycystic ovarian syndrome) Social History Smoking Status: Never smoker second hand exposure: No alcohol intake: current Alcohol type: wine substance use type: does not use what type of physical activity do you participate in: yoga frequency: 1-2 times per week HPI VAGINAL IRRITATION (ALREADY TREATED FOR YEAST) Details: RAYNA WESTON is a 28 year old who presents for second opinion of vaginal irritation x 2 months. She has been on Diflucan multiple times from her pcp. She had the initial 2 tabs that were unsuccessful, then the 3 tab course. She then was placed on Diflucan 100mg daily x 1 month. Concerns with itching, and feeling swollen, along with creamy white discharge. Denies odor. Was recently diagnosed with DM with her last A1C at 8.8 2 months ago. History Elective abortions Hx Para 0 Spontaneous abortions Hx # Term Pregnancies Ectop (more content not included)... Normal [facility] Vitamin D 1,25-Dihydroxyon 0 - VIT D 1,25 DIHY 54.3 pg/mL Normal 24.8-81.5 [facility] Comment on above: Result Comment: Perf ormed at: [facility] - [facility] [address] [id number] [employer] Executive: Annie Lambert MD, Phone: [phone] Performed By: #### L 501.9520, L3300.0960, L100.0100, L500.4050, L500.4100 #### [facility] [address] [place], [address] CBC W/Diff, Automatedon 10-07 Absolute Lymph 3.30 X10 3/uL Normal 0.83-4.51 [facility] Comment on above: Performed By: #### L 501.9520, L3300.0960, L100.0100, L500.4050, L500.4100 #### [facility] [address] [place], [address] Absolute Neut 4.4 X10 3/uL Normal 2.0-7.7 [facility] Comment on above: Performed By: #### L 501.9520, L3300.0960, L100.0100, L500.4050, L500.4100 #### [facility] [address] [place], [address] Basophils/100 WBC (Bld) 0.8 % Normal 0-1 [facility] Comment on above: Performed By: #### L 501.9520, L3300.0960, L100.0100, L500.4050, L500.4100 #### [facility] [address] [place], [address] Eosinophils/100 WBC (Bld) 1.8 % Normal 0-5 [facility] Comment on above: Performed By: #### L 501.9520, L3300.0960, L100.0100, L500.4050, L500.4100 #### [facility] [address] [place], [address] Erythrocyte distribution width (RBC) [Ratio] 13.7 % Normal 11.6-14.6 [facility] Comment on above: Performed By: #### L 501.9520, L3300.0960, L100.0100, L500.4050, L500.4100 #### [facility] [address] [place], [address] Hematocrit (Bld) [Volume fraction] 46.9 % Normal 37-47 [facility] Comment on above: Performed By: #### L 501.9520, L3300.0960, L100.0100, L500.4050, L500.4100 #### [facility] [address] [place], [address] Hemoglobin (Bld) [Mass/Vol] 15.1 g/dL High 12.0-15.0 [facility] Comment on above: Performed By: #### L 501.9520, L3300.0960, L100.0100, L500.4050, L500.4100 #### [facility] [address] [place], [address] IG% 0.100 Normal 0.0-0.9 [facility] Comment on above: Result Comment: IG% - Immature Granulocytes (promyelocytes, myelocytes and metamyelocytes) > 1% indicates that a LEFT SHIFT is Present. Performed By: #### L 501.9520, L3300.0960, L100.0100, L500.4050, L500.4100 #### [facility] [address] [place], [address] Lymphocytes/100 WBC (Bld) 39.3 % Normal 19-41 [facility] Comment on above: Performed By: #### L 501.9520, L3300.0960, L100.0100, L500.4050, L500.4100 #### [facility] [address] [place], [address] MCH (RBC) [Entitic mass] 28.5 pg Normal 27.0-32.0 [facility] Comment on above: Performed By: #### L 501.9520, L3300.0960, L100.0100, L500.4050, L500.4100 #### [facility] [address] [place], [address] MCHC (RBC) [Mass/Vol] 32.2 g/dL Normal 32-36 [facility] Comment on above: Performed By: #### L 501.9520, L3300.0960, L100.0100, L500.4050, L500.4100 #### [facility] [address] [place], [address] MCV (RBC) [Entitic vol] 88.5 fL Normal 81-99 [facility] Comment on above: Performed By: #### L 501.9520, L3300.0960, L100.0100, L500.4050, L500.4100 #### [facility] [address] [place], [address] Monocytes/100 WBC (Bld) 5.6 % Normal 0-10 [facility] Comment on above: Performed By: #### L 501.9520, L3300.0960, L100.0100, L500.4050, L500.4100 #### [facility] [address] [place], [address] Neutrophils/100 WBC (Bld) 52.4 % Normal 47-70 [facility] Comment on above: Performed By: #### L 501.9520, L3300.0960, L100.0100, L500.4050, L500.4100 #### [facility] [address] [place], [address] Nucleated RBC (Bld) [#/Vol] 0 10*3/uL Normal 0-5 [facility] Comment on above: Performed By: #### L 501.9520, L3300.0960, L100.0100, L500.4050, L500.4100 #### [facility] [address] [place], [address] Platelet mean volume (Bld) [Entitic vol] 10.1 fL Normal 6.2-12.0 [facility] Comment on above: Performed By: #### L 501.9520, L3300.0960, L100.0100, L500.4050, L500.4100 #### [facility] [address] [place], [address] Platelets (Bld) [#/Vol] 306 10*3/uL Normal 150-450 [facility] Comment on above: Performed By: #### L 501.9520, L3300.0960, L100.0100, L500.4050, L500.4100 #### [facility] [address] [place], [address] RBC (Bld) [#/Vol] 5.30 10*6/uL Normal 4.2-5.4 [facility] Comment on above: Performed By: #### L 501.9520, L3300.0960, L100.0100, L500.4050, L500.4100 #### [facility] [address] [place], [address] RDW SD 44.2 fl High 35.1-43.9 [facility] Comment on above: Performed By: #### L 501.9520, L3300.0960, L100.0100, L500.4050, L500.4100 #### [facility] [address] [place], [address] WBC (Bld) [#/Vol] 8.4 10*3/uL Normal 4.4-11.[address] [facility] Comment on above: Performed By: #### L 501.9520, L3300.0960, L100.0100, L500.4050, L500.4100 #### [facility] [address] [place], [address] Comprehensive Metabolic Prof [facility] 10-23-2023 Albumin [Mass/Vol] 3.8 g/dL Normal 3.2-5.[address] [facility] Comment on above: Performed By: #### L 501.9520, L3300.0960, L100.0100, L500.4050, L500.4100 #### [facility] [address] [place], [address] Albumin/Globulin [Mass ratio] 0.8 {ratio} Low 0.9-2.4 [facility] Comment on above: Performed By: #### L 501.9520, L3300.0960, L100.0100, L500.4050, L500.4100 #### [facility] [address] [place], [address] ALK P 61 U/L Normal 45-117 [facility] Comment on above: Performed By: #### L 501.9520, L3300.0960, L100.0100, L500.4050, L500.4100 #### [facility] [address] [place], [address] ALT [Catalytic activity/Vol] 59 U/L High 13-56 [facility] Comment on above: Performed By: #### L 501.9520, L3300.0960, L100.0100, L500.4050, L500.4100 #### [facility] [address] [place], [address] AST [Catalytic activity/Vol] 33 U/L Normal 15-37 [facility] Comment on above: Performed By: #### L 501.9520, L3300.0960, L100.0100, L500.4050, L500.4100 #### [facility] [address] [place], [address] Bilirubin [Mass/Vol] 0.40 mg/dL Normal 0.20-1.00 [facility] Comment on above: Result Comment: For patients on eltrombopag therapy, use of Dimension [place] TBIL is not recommended. Performed By: #### L 501.9520, L3300.0960, L100.0100, L500.4050, L500.4100 #### [facility] [address] [place], [address] BUN/CRE 19.1 RATIO Normal 10-20 [facility] Comment on above: Performed By: #### L 501.9520, L3300.0960, L100.0100, L500.4050, L500.4100 #### [facility] [address] [place], [address] CA,Total 9.9 mg/dL Normal 8.5-10.1 [facility] Comment on above: Performed By: #### L 501.9520, L3300.0960, L100.0100, L500.4050, L500.4100 #### [facility] [address] [place], [address] Chloride [Moles/Vol] 104 mmol/L Normal 98-107 [facility] Comment on above: Performed By: #### L 501.9520, L3300.0960, L100.0100, L500.4050, L500.4100 #### [facility] [address] [place], [address] CO2 [Moles/Vol] 25.0 mmol/L Normal 21.0-32.0 [facility] Comment on above: Performed By: #### L 501.9520, L3300.0960, L100.0100, L500.4050, L500.4100 #### [facility] [address] [place], [address] Creatinine [Mass/Vol] 0.73 mg/dL Normal 0.55-1.02 [facility] Comment on above: Result Comment: The validity of the calculated GFR GFRAA in patients over 70 years has not been determined. Clinical correlation is essential. Performed By: #### L 501.9520, L3300.0960, L100.0100, L500.4050, L500.4100 #### [facility] [address] [place], [address] EST GFR - AA 120 mL/min Normal >60 [facility] Comment on above: Result Comment: Afri can Iranian GFR Calc Performed By: #### L 501.9520, L3300.0960, L100.0100, L500.4050, L500.4100 #### [facility] [address] [place], [address] GAP 9 Normal 5-15 [facility] Comment on above: Performed By: #### L 501.9520, L3300.0960, L100.0100, L500.4050, L500.4100 #### [facility] [address] [place], [address] GFR/1.73 sq M.predicted among non-blacks MDRD (S/P/Bld) [Vol rate/Area] 99 mL/min/{1.73_m2} Normal >60 [facility] Comment on above: Result Comment: Non- GFR Calc Performed By: #### L 501.9520, L3300.0960, L100.0100, L500.4050, L500.4100 #### [facility] [address] [place], [address] Globulin (S) [Mass/Vol] 4.7 g/dL High 2.2-4.2 [facility] Comment on above: Performed By: #### L 501.9520, L3300.0960, L100.0100, L500.4050, L500.4100 #### [facility] [address] [place], [address] Glucose [Mass/Vol] 149 mg/dL High 74-[address] [facility] Comment on above: Result Comment: Fast ing Glucose result greater than or equal to 126 mg/dL suggests DIABETES MELLITUS per A.D.A. criteria. Performed By: #### L 501.9520, L3300.0960, L100.0100, L500.4050, L500.4100 #### [facility] [address] [place], [address] Potassium [Moles/Vol] 3.9 mmol/L Normal 3.5-5.1 [facility] Comment on above: Performed By: #### L 501.9520, L3300.0960, L100.0100, L500.4050, L500.4100 #### [facility] [address] [place], [address] Sodium [Moles/Vol] 138 mmol/L Normal 136-[address] [facility] Comment on above: Performed By: #### L 501.9520, L3300.0960, L100.0100, L500.4050, L500.4100 #### [facility] [address] [place], [address] T PROT 8.5 g/dL High 6.4-8.2 [facility] Comment on above: Performed By: #### L 501.9520, L3300.0960, L100.0100, L500.4050, L500.4100 #### [facility] [address] [place], [address] Urea nitrogen [Mass/Vol] 14 mg/dL Normal 7-18 [facility] Comment on above: Performed By: #### L 501.9520, L3300.0960, L100.0100, L500.4050, L500.4100 #### [facility] [address] [place], [address] Lipid Profileon 10-23-2023 Cholesterol [Mass/Vol] 225 mg/dL High 200 [facility] Comment on above: Result Comment: <200 mg/dL Desirable 200-240 mg/dL Borderline >240 mg/dL High Risk Performed By: #### L 501.9520, L3300.0960, L100.0100, L500.4050, L500.4100 #### [facility] [address] [place], [address] Cholesterol in HDL [Mass/Vol] 38 mg/dL Low [facility] Comment on above: Result Comment: The drugs N-Acetylcysteine and Metamizole may falsely depress this assay. Reference Range HDL <40 mg/dL Low HDL Cholesterol HDL >or= 60 mg/dL High HDL Cholesterol Performed By: #### L 501.9520, L3300.0960, L100.0100, L500.4050, L500.4100 #### [facility] [address] [place], [address] Cholesterol in LDL [Mass/Vol] 109 mg/dL Normal 0-130 [facility] Comment on above: Performed By: #### L 501.9520, L3300.0960, L100.0100, L500.4050, L500.4100 #### [facility] [address] [place], [address] Cholesterol in VLDL [Mass/Vol] 78 mg/dL High 5-40 [facility] Comment on above: Performed By: #### L 501.9520, L3300.0960, L100.0100, L500.4050, L500.4100 #### [facility] [address] [place], [address] Triglyceride [Mass/Vol] 392 mg/dL High [facility] Comment on above: Result Comment: The drugs N-Acetylcysteine and Metamizole may falsely depress this assay. Serum Triglycerides Reference Interval Normal <150 mg/dL Borderline high 150 - 199 mg/dL High 200 - 499 mg/dL Very High > or = 500 mg/dL Performed By: #### L 501.9520, L3300.0960, L100.0100, L500.4050, L500.4100 #### [facility] [address] [place], [place], [address] Thyroid Stim Hormone (TSH)on 10-23-2023 TSH 3.81 uIU/mL High 0.358-3.74 [facility] Comment on above: Performed By: #### L 501.9520, L3300.0960, L100.0100, L500.4050, L500.4100 #### [facility] [address] [place], [place], [address] Urine Cultureon 09-07-2023 URC Culture exhibits no growth. Normal [facility] Comment on above: Performed By: #### M 100.2200 #### [facility] [address] [place], [place], [id number] No Panel Informationon 12-26 Follicle Stimulating Hormone 6.4 mIU/mL [facility] Work Phone: Comment on above: NORMAL REFERENCE RAN GES FEMALE FOLLICULAR 2.3 - 12.6 mIU/mL MID-CYCLE PEAK 5.2 - 17.5 mIU/mL LUTEAL 1.7 - 12.9 mIU/mL POST-MENOPAUSAL ON MHT 5.9 - 72.8 mIU/mL NOT ON MHT 12.7 - 132.2 mlU/mL MALE 0.7 - 10.8 mIU/mL Thyroid Stimulating Hormone (TSH) 3.55 uIU/mL 0.358-3.74 [facility] Work Phone: Serum or plasma estradiol (E 2) measurement (mass/volume)on 12-26-2021 E2 [Mass/Vol] 50.2 pg/mL [facility] Work Phone: Comment on above: NORMAL REFERENCE RAN GES FEMALE FOLLICULAR 21.4 - 164.8 pg/mL MID-CYCLE PEAK 49.9 - 367.2 pg/mL LUTEAL 40.2 - 259.0 pg/mL POST-MENOPAUSAL ON MHT <11.0 - 462.1 pg/mL NOT ON MHT <11.0 - 58.3 pg/mL MALE <11.0 - 52.5 pg/mL NOTE:[employer] HAS CONFIRMED THE DRUG FULVETRANT (FASLODEX) MAY CAUSE FALSELY ELEVATED ESTRADIOL RESULTS WHEN USING THIS TEST METHOD. IF PATIENT IS TAKING FULVESTRANT AN ALTERNATIVE METHOD SHOULD BE USED TO DETERMINE ESTRADIOL CONCENTRATION. No Panel Informationon 05-31 Thyroid Stimulating Hormone (TSH) 3.24 uIU/mL 0.358-3.74 [facility] Work Phone: Vital Signs Date Time Vital Sign Value Performing Clinician Alpesh yang 12-26-2021 08:56-0400 Body height 167.64 cm HANY Chinchilla [employer] Work Phone: [facility] Work Phone: 12-26-2021 08:50-0400 Body mass index (BMI) [Ratio] 42.1 kg/m2 HANY Chinchilla [employer] Work Phone: [facility] Work Phone: 12-26-2021 08:50-0400 Body weight 118.44 kg HANY Chinchilla [employer] Work Phone: [facility] Work Phone: 12-26-2021 08:50-0400 Diastolic blood pressure 92 mm[Hg] HANY Chinchilla [employer] Work Phone: [facility] Work Phone: 12-26-2021 08:50-0400 Systolic blood pressure 138 mm[Hg] HANY Chinchilla [employer] Work Phone: [facility] Work Phone: 05-31-2021 19:03-0500 Body height 167.64 cm [facility] Work Phone: 05-31-2021 19:03-0500 Body mass index (BMI) [Ratio] 42.4 kg/m2 [facility] Work Phone: 05-31-2021 19:03-0500 Body temperature 98.8 [degF] [facility] Work Phone: 05-31-2021 19:03-0500 Body weight 119.29 kg [facility] Work Phone: 05-31-2021 19:03-0500 Diastolic blood pressure 80 mm[Hg] [facility] Work Phone: 05-31-2021 19:03-0500 Heart rate 95 /min [facility] Work Phone: 05-31-2021 19:03-0500 Respiratory rate 18 /min [facility] Work Phone: 05-31-2021 19:03-0500 SaO2% (BldA) [Mass fraction] 97 % [facility] Work Phone: 05-31-2021 19:03-0500 Systolic blood pressure 134 mm[Hg] [facility] Work Phone: Encounters Encounter Date Encounter Type Care Provider Facility Start: 07-31-2024 ambulatory Tete Davis Facility :[facility] Start: 06-26-2024 End: 06-26-2024 ambulatory Lelo Chinchilla [employer] Facility:[facility] Start: 05-23-2024 End: 05-23-2024 ambulatory Lelo Chinchilla [employer] Facility:[facility] Start: 05-08-2024 End: 05-08-2024 ambulatory Lelo Chinchilla [employer] Facility:[facility] Start: 05-08-2024 End: 05-08-2024 ambulatory Lelo Chinchilla [employer] Facility:[facility] Start: 05-01-2024 End: 05-01-2024 ambulatory Tete Davis Facility:[facility] Start: 05-01-2024 End: 05-01-2024 ambulatory Tete Davis Facility:[facility] Start: 03-25-2024 ambulatory Andres Fletcher Facility:[facility] Start: 02-27-2024 End: 02-27-2024 ambulatory Celia Chopra Facility:[facility] Start: 02-27-2024 End: 02-27-2024 ambulatory Celia Bermudezluispetey Facility:[facility] Start: 01-09-2024 End: 01-09-2024 ambulatory Natasha Juarez Facility:[facility] Start: 01-09-2024 End: 01-09-2024 ambulatory Natasha Juarez Facility:[facility] Start: 01-03-2024 Encounter for gynecological examination (general) (routine) without abnormal findings Natasha Juarez [facility] Start: 01-03-2024 End: 01-03-2024 ambulatory Natasha Juarez Facility:[facility] Start: 12-17-2023 End: 12-17-2023 ambulatory Natasha Juarez Facility:[facility] Start: 12-17-2023 End: 12-17-2023 ambulatory Natasha Juarez Facility:[facility] Start: 10-23-2023 End: 10-23-2023 ambulatory Lelo Chinchilla [employer] Facility:[facility] Start: 09-06-2023 End: 09-06-2023 ambulatory Lelo Chinchilla [employer] Facility:[facility] Start: 12-26-2021 End: 12-26-2021 ambulatory [employer]-Dominic Chinchilla [employer] Work Phone: [facility] Work Phone: Start: 12-26-2021 End: 12-26-2021 Patient encounter procedure [employer]-Dominic Chinchilla [employer] Work Phone: [facility] Start: 12-26-2021 End: 12-26-2021 Patient encounter procedure [employer]-Dominic Chinchilla [employer] Work Phone: [facility] [place] Start: 08-18-2021 End: 08-18-2021 Patient encounter procedure [facility], Specimen Start: 05-31-2021 End: 05-31-2021 Patient encounter procedure [facility], Specimen Plan of Treatment Date Care Activity Detail Author Start: 12-28-2021 Patient referral [facility] Work Phone: Start: 12-26-2021 Testosterone measurement [facility] Work Phone: Patient referral [facility] Work Phone: Testosterone Free [M ass/volume] in Serum or Plasma [facility] Work Phone: Testosterone measurement [facility] Work Phone: [facility] Work Phone: Immunizations Immunization Date Immunization Notes Care Provider Alexandrea delacruz 01-06-2016 influenza, seasonal, injectable [facility] Work Phone: 01-20-2015 influenza, seasonal, injectable [facility] Work Phone: 01-07-2014 influenza, seasonal, injectable [facility] Work Phone: Payers Date Payer Category Payer Private Health Insurance [id number] 2024 Private Health Insurance [id number] 2023 Unknown [id number] 2023 Self-pay [id number] 2013 Unknown [id number] Unknown [id number] Unknown [facility] DO N OT USE [id number] Unknown [id number] [id number] 2 Unknown [id number] 2.16.840.1.944007.3.579.2.46 2 Unknown [id number] 2.16.840.1.268273.3.579.2.46 2 Unknown [id number] 2.16.840.1.535740.3.579.2.46 2 Unknown [id number] 2.16.840.1.946851.3.579.2.46 2 Unknown [id number] 2.16.840.1.618906.3.579.2.46 2 Unknown [id number] 2.16.840.1.346139.3.579.2.46 2 Unknown [id number] 2.16.840.1.281674.3.579.2.46 2 Unknown [id number] 2.16.840.1.698082.3.579.2.46 2 Unknown [id number] 2.16.840.1.168600.3.579.2.46 2 Unknown [id number] 2.16.840.1.869320.3.579.2.46 2 Unknown [id number] 2.16.840.1.455904.3.579.2.46 2 Unknown [id number] 2.16.840.1.686198.3.579.2.46 2 Unknown [id number] 2.16.840.1.847072.3.579.2.46 2 Unknown [id number] 2.16.840.1.203827.3.579.2.46 2 Unknown [id number] 2.16.840.1.519828.3.579.2.46 2 Unknown [id number] 2.16.840.1.985553.3.579.2.46 2 Social History Date Type Detail Facility Start: 07-07-2020 End: 12-26-2021 Tobacco smoking status MOIS Unknown if ever smoked [facility] Work Phone: Start: 1995 Sex Assigned At Female W [facility] Work Phone: Evaluation note Note Date & Type Note Facility Evaluation note Diagnosis Onset Date Bronchitis acute Hypothyroidism (acquired) [facility] [place] [facility] Work Phone: Evaluation note Note Date & Type Note Facility Evaluation note Diagnosis Onset Date Hypothyroidism (acquired) [facility] [place] Insulin resistance acute PCOS (polycystic ovarian syndrome) acute Pre-conception counseling [facility] [place] [facility] Work Phone: Hospital Discharge instructions Note Date & Type Note Facility Hospital Discharge instructions Ambulatory OrdersEndocrinology Location: None Selected [facility] Work Phone: Chief Complaint and Reason for Visit Chief Complaint Sore throat Reason for Visit Bronchitis Hypothyroidism (acquired) Chief Complaint PCOS pre conception consult Reason for Visit Hypothyroidism (acqu ired) Insulin resistance PCOS (polycystic ovarian syndrome) Pre-conception counseling Family History No Family History Records Found Relationship Condition Age at Onset Recorded Date/T roberto Not Specified History of polycystic ovarian syndrome U nknown Polycystic ovaries Unknown Diabetes mellitus Unknown mother Hypertension Unknown High blood cholesterol Unknown brother Asthma Unknown Severe allergy Unknown father Disorder of thyroid Unknown Advance Directives No Advanced Directives Records Found Advance Directive Response Recorded Date/ Time Living Will No October 26, 2015 3:34am Power of Bat Person No October 25 6 3:34am Summary Purpose Additional Source Comments Goals (unrecognized section and content) Goals may be documented in a n alternate sectionGoals may be documented in an alternate section INFORMATION SOURCE (unrecogn ized section and content) DATE CREATED AUTHOR 07/25/2024 [facility] FOR RECORDS PERTAINING TO PATIENTS WHO ARE OR HAVE BEEN ENROLLED IN A CHEMICAL DEPENDENCY/SUBSTANCEABUSE PROGRAM, SOME INFORMATION MAY BE OMITTED. This clinical summary was aggregated from multiple sources. Caution should be exercised in using it in the provision of clinical care. This summary normalizes information from multiple sources, and as a consequence, information in this document may materially change the coding, format and clinical context of patient data. In addition, data may be omitted in some cases. CLINICAL DECISIONS SHOULD BE BASED ON THE PRIMARY CLINICAL RECORDS. [employer] provides no warranty or guarantee of the accuracy or completeness of information in this document.
[2025-01-01 22:57] LABS: Hematocrit 40.7 % (37-47); Hemoglobin 13.6 g/dL (12.0-15.0); Immature Granulocytes Count 0.020 X10^3/uL (0.0-0.0); Mean Corp Hgb Conc 33.4 g/dL (32-36); Mean Corpuscular Volume 88.1 fL (81-99); Mean Platelet Vol. 10.8 fl (6.2-12.0); NRBC Flagged by Analyzer 0 % (0-5); Platelet Count 307 K/mm3 (150-450); RBC Distribution Width CV 13.9 % (11.6-14.6); RBC Distribution Width SD 44.9 fl (35.1-43.9); Red Blood Count 4.62 M/mm3 (4.2-5.4); White Blood Count 10.6 K/mm3 (4.4-11.0)
[2025-01-01 23:15] LABS: AST(SGOT) 20 U/L (<=31); Alanine Aminotransfer ALT/SGPT 27 U/L (<=34); Albumin, Serum 4.1 g/dL (3.5-5.0); Alkaline Phosphatase 48 U/L (35-104); Anion Gap 12 (5-15); BUN 17 mg/dL (4-19); BUN/Creat Ratio 22.1 RATIO (10-20); Calcium,Total 9.1 mg/dL (7.6-11.0); Carbon Dioxide 23.1 mmol/L (21.0-32.0); Chloride 105 mmol/L (98-108); Cholesterol 149 mg/dL (<=200); Globulin 3.1 g/dL (2.2-4.2); Glucose 68 mg/dL (70-99); Low Density Lipoprotein Calc. 80 mg/dL; Potassium 4.0 mmol/L (3.3-5.1); Triglycerides 155 mg/dL; Very Low Density Lipoprotein 31 mg/dL (5-40); cholesterol:hdl ratio screen 3.90
== END | disposition home or self-care (01) ==
PROVIDERS: PCP Nurse Practitioner; Referring Provider Nurse Practitioner; Visit Provider Nurse Practitioner
DX: Z00.00 Encounter for general adult medical examination without abnormal findings (principal)
CPT/HCPCS: 80053; 80061; 83036; 85025